=== PATIENT | female | born 1935 | race African-American/Black ===

== ENCOUNTER 2024-01-20 13:24 | Emergency (ER) | payer MEDICARE, SELFPAY ==
--- NOTE | ~2024-01-20 | XR_ITS ---
XR shoulder RT min 2V Ordering provider: Richmond Bob MD History: . Pain, chonic pain bilateral shoulder . Comparison: None. FINDINGS: BONES: No acute fracture or dislocation. Degenerative changes seen in the greater tuberosity with cys tic changes in the subchondral area of the head. JOINT SPACES: The acromioclavicular joint shows osteoarthritic changes. The glenohumeral joint is sev erely narrowed. SOFT TISSUES: Normal. IMPRESSION: No acute osseous abnormality right shoulder. Severe osteoarthritic changes of the glenohumeral joint and mild to moderate acromioclavicular joint osteoarthritic changes. Reviewed, dictated and finalized at location A. IMPRESSION: No acute osseous abnormality right shoulder. Severe osteoarthritic changes of the glenohumeral joint and mild to moderate ac romioclavicular joint osteoarthritic changes.
--- NOTE | ~2024-01-20 | XR_ITS ---
XR shoulder LT min 2V Ordering provider: Richmond Bob MD History: . Pain, chronic pain bilateral shoulder . Comparison: None. FINDINGS: BONES: No acute fracture or dislocation. Cystic changes seen in the humeral head. JOINT SPACES: The acromioclavicular joint shows osteoarthritic changes. The glenohumeral joint is se verely narrowed. SOFT TISSUES: Normal. IMPRESSION: No acute osseous abnormality left shoulder. Severe osteoarthritic changes of the glenohumeral joint. Mild osteoarthritic changes of the acromiocl avicular joint. Reviewed, dictated and finalized at location A. IMPRESSION: No acute osseous abnormality left shoulder. Severe osteoarthritic changes of the glenohumeral joint. Mild osteoarthritic ch anges of the acromioclavicular joint.
[2024-01-20 13:37] VITALS: BP 122/75; PULSE 60; RESP 16; TEMP 36.4; O2SAT 100
[2024-01-20] MEDS: HYDROcodone/acetaminophen (*CRX) 5-325 MG TABLET 1 TAB PO (14:12)
--- NOTE | 2024-01-20 15:23 | ED.EXTPRO ---
HPI - Extremity Problem General Chief complaint: Extremity Problem,Nontraumatic Stated complaint: BONE ON BONE JOINT PAIN Time Seen by Provider: 01/20/24 13:44 History of Present Illness HPI Narrative: Patient is an 88-year-old female who presents ER with bilateral shoulder pain. Chronic. Has been seen by an orthopedic surgeon Lizandro at [facility]. She has had steroid injections. She is due for another 1 next month. No trauma. Has occasional clicking when she moves her arm. Pain is not controlled with tramadol at home. Has not seen pain management. Related Data Allergies Allergy/AdvReac Type Severity Reaction Status Date / Time No Known Allergies Allergy Unverified 12/01/13 11:21 Review of Systems Constitutional: Constitutional: Reports no additional constitutional complaints Musculoskeletal: Musculoskeletal: Reports back pain, Reports arthralgias, Denies joint swelling and Denies muscle cramps Neurologic: Reports system reviewed and no additional complaints, except as documented PMFSH Past Medical History Medical History (Updated 01/20/24 @ 15:31 by Richmond Bob MD) Hypercholesterolemia Hypertension Surgical History Surgical History (Updated 01/20/24 @ 15:25 by Richmond Bob MD) History of colon resection History of hysterectomy History of right knee joint replacement Exam Narrative: GENERAL: Well-appearing, well-nourished, and in no acute distress. HEAD: Normocephalic, atraumatic. ENT: Mucous membranes moist. EXTREMITIES: limited range of motion of the shoulders bilaterally due to pain in arthritis. No point tenderness to the shoulders or clavicles. SKIN: Warm, dry, no rash. NEURO: Alert and oriented x3. PSYCH: Normal mood and affect. Course Course Emergency Course: [place] improves patient's discomfort. There having trouble obtaining this from PCP as they were concerned about the patient potentially having side effects that affect her adversely though her pain is preventing her ability to move and function. Recommend that she go to pain management. Will supply some [place] for as needed pain at home. Vital Signs Vital signs: Vital Signs Temperature 97.6 F 01/20/24 13:37 Pulse Rate 60 01/20/24 13:37 Respiratory Rate 16 01/20/24 13:37 Blood Pressure 122/75 01/20/24 13:37 Pulse Oximetry 100 01/20/24 13:37 Oxygen Delivery Room Air 01/20/24 13:37 Temperature 97.6 F 01/20/24 13:37 Pulse Rate 60 01/20/24 13:37 Respiratory Rate 16 01/20/24 13:37 Blood Pressure 122/75 01/20/24 13:37 Pulse Oximetry 100 01/20/24 13:37 Oxygen Delivery Room Air 01/20/24 13:37 MDM - Extremity (Nontraumatic) Imaging Data Radiologist's impression: ITS Impressions Shoulder X-Ray 01/20/24 14:54 IMPRESSION: No acute osseous abnormality right shoulder. Severe osteoarthritic changes of the glenohumeral joint and mild to moderate acromioclavicular joint osteoarthritic changes. Shoulder X-Ray 01/20/24 14:56 IMPRESSION: No acute osseous abnormality left shoulder. Severe osteoarthritic changes of the glenohumeral joint. Mild osteoarthritic changes of the acromioclavicular joint. Discharge Plan Discharge Clinical Impression: Chronic pain in shoulder Patient Disposition: Home, Self-Care Condition: Stable Instructions: Shoulder Pain (ED), Arthritis (ED) Additional Instructions: Look into finding a chronic pain physician to help manage your discomfort. Prescriptions: New hydrocodone-acetaminophen 5-325 mg tablet 1 tablet PO Q6H PRN (Reason: pain) Qty: 20 0RF Follow-up/Referrals: Kerry Irby MD [Physician] - Rio Bee MD [Physician] - Flynn,Ash Aguero MD [Primary Care Provider] - Bhavin Nick MD [Physician] -
[2024-01-20 15:50] VITALS: BP 134/85; PULSE 75; RESP 20; TEMP 36.5; O2SAT 98
== END 2024-01-20 15:51 | disposition home or self-care (01) ==
PROVIDERS: Emergency Provider Emergency Medicine; PCP Internal Medicine
DX: M25.512 Pain in left shoulder (principal); M25.511 Pain in right shoulder; G89.29 Other chronic pain; M19.012 Primary osteoarthritis, left shoulder; M19.011 Primary osteoarthritis, right shoulder; E78.00 Pure hypercholesterolemia, unspecified; I10 Essential (primary) hypertension; Z90.49 Acquired absence of other specified parts of digestive tract; Z90.710 Acquired absence of both cervix and uterus; Z96.651 Presence of right artificial knee joint
CPT/HCPCS: 73030; 99284; A9270

== ENCOUNTER 2024-10-14 10:35 | Outpatient (CLI) | payer MEDICARE, MEDICAID, SELFPAY ==
--- OUTSIDE RECORDS SUMMARY | 2024-10-14 10:42 | XMS_ITS | Encounter Summary ---
Author Organization [facility] [employer] [facility] [employer] [facility] Address [address] [place], [place] [address] [place] [address] Phone Care Team Providers Care Historic Preservationist Name Role Phone Katharine Schulte Primary Care Provider Encounter Details Date Type Department Care Team (Late st Contact Info) Description 10/13/2024 Documentation Only [place] [facility] [address] [place] [address] 1 [place] [address] Saurabh Bernal MD [address] [facility] 1 [place] [address] Social History Tobacco Use Types Packs/Day Years Used Date Smoking Tobacco: Never Assessed Comments Unknown Sex and Gender Information Value Date Recorded Sex Assigned at Not on file Legal Sex Female 4:50 PM EDT Gender Identity Not on file Sexual Orientation Not on file documented as of this encounter Plan of Treatment Upcoming Encounters Date Type Department Care Team (Late st Contact Info) Description 12/01/2024 10:30 AM CDT Office Visit [place] [facility] [address] [facility] [address] [place] [address] Saurabh Bernal MD [address] [facility] 1 [place] [address] documented as of this encounter Visit Diagnoses Not on filedocumented in this encounter Care Teams Historic Preservationist Relationship Specialty Start Date End Date Katharine Schulte FNP-C [address] [place] [address] PCP - General Internal Medicine 08/12/24 documented as of this encounter
--- OUTSIDE RECORDS SUMMARY | 2024-10-14 10:42 | XMS_ITS | Encounter Summary ---
Author Organization [facility] [employer] [facility] [employer] [facility] Address [address] [place], [place] [address] [place] [address] Phone Care Team Providers Care Metal Punch Press Operator Name Role Phone Katharine Schulte Primary Care Provider [phone] Encounter Details Date Type Department Care Team (Late st Contact Info) Description 10/12/[address] [employer] [facility] [address] [place] [address] 1 [place] [address] Saurabh Bernal MD [address] [facility] 1 [place] [address] Social History Tobacco Use Types [...] Description 12/01/2024 10:30 AM CDT Office Visit [address] [employer] [facility] [address] [facility] 15 [place] [address] Saurabh Bernal MD [address] [facility] 1 [place] [address] documented as of this encounter Visit Diagnoses Not on filedocumented in this encounter Care Teams Metal Punch Press Operator Relationship Specialty Start Date End Date Katharine Schulte FNP-C [address] [place] [address] PCP - General Internal Medicine 08/12/24 documented as of this encounter
--- OUTSIDE RECORDS SUMMARY | 2024-10-14 10:42 | XMS_ITS | Encounter Summary ---
Author Organization [facility] [employer] [facility] Address [address] [facility] [place] [address] Phone Care Team Providers Care Geophysical Computer Name Role Phone Katharine Schulte PHARMACY INFORMATICS MANAGER-C Primary Care Provider Reason for Referral * Imaging (Routine) - Pending Review Specialty Diagnoses / Procedures Referred By Bakari t Referred To Contact Diagnoses Chronic kidney disease stage 3B (HCC) Hypertension Mixed hyperlipidemia Primary generalized osteoarthritis Simple chronic bronchitis (HCC) 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 Vitamin D deficiency, not otherwise specified Procedures Ultrasound renal complete Saurabh Bernal MD [address] [facility] 1 [place] [address] Phone: tel: fax: Referral ID Status Reason Start Date Expiration Date V isits Requested Visits Authorized [id number] Pending Review 10/13/2024 10/13/2025 1 1 Encounter Details Date Type Department Care Team (Late st Contact Info) Description 10/13/2024 10:30 AM CDT Office Visit [facility] [address] [facility] [address] [place] [phone] Saurabh Bernal MD [address] [facility] 1 [place] [address] Chronic kidney disease stage 3B (HCC) (Primary Dx); Hypertension; Mixed hyperlipidemia; Primary generalized osteoarthritis; Simple chronic bronchitis (HCC); 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); Anemia in chronic kidney disease; Vitamin D deficiency, not otherwise specified Social History Tobacco Use Types Packs/Day Years Used Date Smoking Tobacco: Never Assessed Comments Unknown Sex and Gender Information Value Date Recorded Sex Assigned at Not on file Legal Sex Female 4:50 PM EDT Gender Identity Not on file Sexual Orientation Not on file documented as of this encounter Last Filed Vital Signs Vital Sign Reading Time Taken Comments Blood Pressure 108/60 10/13/2024 11:07 AM CDT Pulse 66 10/13/2024 11:07 AM CDT Temperature 36.1 C (97 F) 10/13/2024 11:07 AM CDT Respiratory Rate 18 10/13/2024 11:07 AM CDT Oxygen Saturation 96% 10/13/2024 11:07 AM CDT Inhaled Oxygen Concentration - - Weight 73.3 kg (161 lb 9.6 oz) 10/13/2024 11:07 AM CDT Height - - Body Mass Index - - documented in this encounter Patient Instructions * Patient Instructions* Saurabh Bernal MD - 10/13/2024 10:30 AM CDT General chronic kidney disease education: You have chronic kidney disease, for additional information, look at the the National Kidney Foundation Internet site at www.kidney.org. Avoid pain medications called nonsteroidal anti-inflammatory drugs, which can raise blood pressure and harm your kidneys. These include ibuprofen and naproxen. Glucosamine and acetaminophen, also called Tylenol, are safe for you. Make sure to update your immunizations for influenza and 13 as well as 23 Valent pneumococcus with your primary care physician. documented in this encounter Progress Notes * Saurabh Bernal MD - 10/13/2024 10:30 AM CDT Images from the original note were not included. [facility] Office Visit Patient Name: Tosin Lundy, Female Date of : 1935, 89 y.o. Date: 10/13/2024 Assessment & Plan 1. Chronic kidney disease stage 3B (HCC) 2. Hypertension 3. Mixed hyperlipidemia 4. Primary generalized osteoarthritis 5. Simple chronic bronchitis (HCC) 6. 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 Anemia in chronic kidney disease 8. Vitamin D deficiency, not otherwise specified CK3 b likely due to HTN and perhaps ASVD. Likely has some CAD/mild CHF. Denies DM2 but might have some elevated A1c? Need to r/o kidney stones/Obs. With h/o bladder dysfunction so possible recurrent UTI in the past PLAN: Avoid NSAIDs. No med change at this time. Continue all the current meds. Labs today. See orders. Labs in 4 wks. US Kid. Return in about 4 weeks (around 11/10/2024). History of Present Illness Tosin Lundy is a 89 y.o. female who was referred by No primary care provider on file. She is here with her grand-daughter. Longer h/o HTN, CAD, DJD, s/p R-Knee prosthesis, s/p L-hip prosthesis, CKD, HLD, Obese, Mother of two. Did have a bladder lift some yrs a go. Over active Bladder but she no longer takes those meds. Did have a cysto yrs ago also. She denies COPD but has Albuterol inhailer prn and was on a steroid pack this past June. The following portions of the patient's chart were reviewed in this encounter and updated as appropriate: Meds No past medical history on file. No past surgical history on file. No family history on file. Social History Tobacco Use Smoking status: Not on file Smokeless tobacco: Not on file Substance Use Topics Alcohol use: Not on file Review of Systems Constitutional: Negative. She has a folding walker at home. She has a rolling walker here. HENT: Negative. Eyes: Negative. Respiratory: Negative. Cardiovascular: Negative. Gastrointestinal: Negative. Genitourinary: Negative. Musculoskeletal: Negative. Skin: Negative. Neurological: Negative. Psychiatric/Behavioral: Negative. All other systems reviewed and are negative. Current Outpatient Medications Medication Sig Dispense Refill acetaminophen (TYLENOL) 650 MG suppository Insert 650 mg into the rectum every 8 (eight) hours if needed for mild pain albuterol HFA (PROVENTIL HFA;VENTOLIN HFA) 108 (90 Base) MCG/ACT inhaler Inhale 2 puffs if needed for shortness of breath atenolol (TENORMIN) 50 MG tablet Take 50 mg by mouth in the morning and 50 mg in the evening. cetirizine (ZyrTEC) 10 MG tablet Take 10 mg by mouth 1 (one) time each day cholecalciferol (VITAMIN D-3 SUPER STRENGTH) 50 MCG (2000 UT) tablet Take 2,000 Units by mouth 1 (one) time each day Farxiga 10 MG tablet Take 10 mg by mouth 1 (one) time each day ferrous sulfate 325 (65 Fe) MG tablet Take 325 mg by mouth 1 (one) time each day with breakfast traMADol (ULTRAM) 50 MG tablet Take 50 mg by mouth every 8 (eight) hours if needed No current facility-administered medications for this visit. Not on File Physical Exam Vitals: 10/13/24 1107 BP: 108/60 Pulse: 66 Resp: 18 Temp: 97 ??F SpO2: 96% Weight: 161 lb 9.6 oz (73.3 kg) Vitals reviewed. Constitutional: She is oriented to person, place, and time. She feels OK. Bothered by joint pains in the knees and shoulders. HEENT: Right Ear: Hearing normal. Left Ear: Hearing normal. Nose: Nose normal. Mouth/Throat: Oropharynx is clear and moist. Eyes: Conjunctivae and EOM are normal. Pupils are equal, round, and reactive to light. Cardiovascular: Normal rate, regular rhythm and intact distal pulses. Pulmonary/Chest: Effort normal and breath sounds normal. Abdominal: Soft. Bowel sounds are normal. 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 She has normal reflexes. Skin: Skin is warm and dry. Psychiatric: She has a normal mood and affect. Her behavior is normal. Judgment normal. Labs Chemistry Lab Units 08/06/24 0000 CREATININE mg/dL 1.24* BUN mg/dL 19 POTASSIUM 5.0 SODIUM 138 CO2 mmol/L 24 CHLORIDE 97.0* ALBUMIN g/dL 4.2 EGFRAFR 42* WBC AUTO 10*3/ML 10.0 HEMATOCRIT 40.3 HEMOGLOBIN 12.4 PLATELETS AUTO 10*3/UL 345 Bone Mineral Lab Units 08/06/24 0000 CALCIUM mg/dL 10.9* No lab exists for component: IRON SATURATION No LOS data to display Saurabh Bernal MD documented in this encounter Plan of Treatment Upcoming Encounters Date Type Department Care Team (Late st Contact Info) Description 12/01/2024 10:30 AM CDT Office Visit [facility] [address] [facility] [address] [place] [address] Saurabh Bernal MD [address] [facility] [address] [place] [address] Scheduled Orders Name Type Priority Associated Diagnoses Orde r Schedule Comprehensive Metabolic Panel Lab Today Chronic kidney disease stage 3B (HCC) Hypertension Mixed hyperlipidemia Primary generalized osteoarthritis Simple chronic bronchitis (HCC) 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 Vitamin D deficiency, not otherwise specified Ordered: 10/13/2024 CBC and Differential Lab Today Chronic kidney disease stage 3B (HCC) Hypertension Mixed hyperlipidemia Primary generalized osteoarthritis Simple chronic bronchitis (HCC) 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 Vitamin D deficiency, not otherwise specified Ordered: 10/13/2024 Hemoglobin A1c Lab Today Chronic kidney disease stage 3B (HCC) Hypertension Mixed hyperlipidemia Primary generalized osteoarthritis Simple chronic bronchitis (HCC) 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 Vitamin D deficiency, not otherwise specified Ordered: 10/13/2024 Phosphorus Lab Today Chronic kidney disease stage 3B (HCC) Hypertension Mixed hyperlipidemia Primary generalized osteoarthritis Simple chronic bronchitis (HCC) 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 Vitamin D deficiency, not otherwise specified Ordered: 10/13/2024 PTH, Intact Lab Today Chronic kidney disease stage 3B (HCC) Hypertension Mixed hyperlipidemia Primary generalized osteoarthritis Simple chronic bronchitis (HCC) 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 Vitamin D deficiency, not otherwise specified Ordered: 10/13/2024 Urinalysis with microscopic Lab Today Chronic kidney disease stage 3B (HCC) Hypertension Mixed hyperlipidemia Primary generalized osteoarthritis Simple chronic bronchitis (HCC) 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 Vitamin D deficiency, not otherwise specified Ordered: 10/13/2024 Protein, Total, Random Urine w/Creatinine (Protein/Creat Ratio) Lab Today Chronic kidney disease stage 3B (HCC) Hypertension Mixed hyperlipidemia Primary generalized osteoarthritis Simple chronic bronchitis (HCC) 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 Vitamin D deficiency, not otherwise specified Ordered: 10/13/2024 Vitamin D 25 Hydroxy Lab Today Chronic kidney disease stage 3B (HCC) Hypertension Mixed hyperlipidemia Primary generalized osteoarthritis Simple chronic bronchitis (HCC) 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 Vitamin D deficiency, not otherwise specified Ordered: 10/13/2024 Lipid panel Lab Today Chronic kidney disease stage 3B (HCC) Hypertension Mixed hyperlipidemia Primary generalized osteoarthritis Simple chronic bronchitis (HCC) 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 Vitamin D deficiency, not otherwise specified Ordered: 10/13/2024 Ultrasound renal complete Imaging Routine Chronic kidney disease stage 3B (HCC) Hypertension Mixed hyperlipidemia Primary generalized osteoarthritis Simple chronic bronchitis (HCC) 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 Vitamin D deficiency, not otherwise specified Expected: 10/13/2024, Expires: 10/13/2025 Renal function panel Lab Routine Chronic kidney disease stage 3B (HCC) Hypertension Mixed hyperlipidemia Primary generalized osteoarthritis Simple chronic bronchitis (HCC) 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 Vitamin D deficiency, not otherwise specified Expected: 11/13/2024, Expires: 11/13/2025 Urine Protein / creatinine ratio Lab Routine Chronic kidney disease stage 3B (HCC) Hypertension Mixed hyperlipidemia Primary generalized osteoarthritis Simple chronic bronchitis (HCC) 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 Vitamin D deficiency, not otherwise specified Expected: 11/13/2024, Expires: 11/13/2025 Urinalysis, Complete w/reflex to Culture Lab Routine Chronic kidney disease stage 3B (HCC) Hypertension Mixed hyperlipidemia Primary generalized osteoarthritis Simple chronic bronchitis (HCC) 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 Vitamin D deficiency, not otherwise specified Expected: 11/13/2024, Expires: 11/13/2025 documented as of this encounter Procedures Procedure Name Priority Date/Time Associated Diagnosis Comments EXT RESULT ENTRY Routine 08/06/2024 Chronic kidney disease stage 3B (HCC) Hypertension Mixed hyperlipidemia Primary generalized osteoarthritis Simple chronic bronchitis (HCC) 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 Vitamin D deficiency, not otherwise specified documented in this encounter Results * (ABNORMAL) EXT RESULT ENTRY (08/06/2024) WBC 10.0 3.3 - 10.0 10*3/ML Red Blood Cell Count 4.30 Hemoglobin 12.4 12.0 - 16.0 Hematocrit 40.3 36.0 - 46.0 Platelets 345 150 - 399 10*3/UL MCV 93.7 82.0 - 108.0 Sodium 138 137 - 147 Potassium 5.0 3.4 - 5.5 Chloride 97.0(A) 99.0 - 108.0 Carbon Dioxide 24 mmol/L Glucose 77 60 - 200 BUN 19 4 - 21 mg/dL Creatinine 1.24(A) 0.50 - 1.10 mg/dL Total Protein 6.8 6.4 - 8.2 G/DL BUN/Creatinine Ratio 15 Albumin 4.2 3.5 - 5.0 g/dL Calcium 10.9(A) 8.7 - 10.7 mg/dL eGFR 42(L) Glucose, UA 2+ mg/dL Bilirubin, UA Negative Ketones, UA Negative Urine Specific [place] 1.04 Blood, UA Trace Tim/ul pH, UA 7.0 Protein, UA Negative mg/dL Urobilinogen, UA Normal Nitrite, UA Negative Leukocytes, UA Trace WBC, Urine None Seen None Seen, Occasional, 0-2 /HPF RBC, Urine None Seen None Seen, Occasional, 1-5 /HPF Epithelial Cells in Urine 6-10 /HPF Bacteria, Urine None Seen None Seen, Occasional /HPF 08/06/2024 us Historical Provider LAB BLOOD ORDERABLES Josy l Result documented in this encounter Visit Diagnoses Diagnosis Chronic kidney disease stage 3B (HCC)- Primary Hypertension Mixed hyperlipidemia Primary generalized osteoarthritis Simple chronic bronchitis (HCC) Simple chronic bronchitis 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
--- OUTSIDE RECORDS SUMMARY | 2024-10-14 10:42 | XMS_ITS | Clinical Summary ---
Author Organization [facility] [email or web address] Address [address] [place] [address] Care Team Providers Care Application Assistant Name Role Phone Ash Pruett MD Primary Care Provider [phone] Source Comments [facility] [email or web address]non-owned Affiliates and Associated Physician Practices is amultiple site organization consisting of ambulatory clinics and hospital sitesin [place], [place], [place] and [place]. This disclosure is being madepursuant to the Care Everywhere program and may not contain all information available regarding this patient. Last updated 17.[facility] [email or web address] Medications * Be aware that medications may not be up to date on this document. Alwaysverify current medications with the patient. clindamycin (Cleocin) 300 MG capsule Take 1 (one) capsule by mouth 3 times daily 15 capsule 08/11/2024 Active Encounters Date Type Department Care Team Description 08/11/2024 11:30 AM CDT - 08/11/2024 1:00 PM CDT Emergency [facility] [address] [place] [address] Cristofer Lazar MD Pain of finger of right hand; Onychia and paronychia of finger Discharge Disposition: Home or Self Care 08/11/2024 Travel from Last 3 Months Social History Tobacco Use Types Packs/Day Years Used Date Smoking Tobacco: Never Assessed Comments Unknown Sex and Gender Information Value Date Recorded Sex Assigned at Not on file Legal Sex Female 10:52 AM CDT Gender Identity Not on file Sexual Orientation Not on file Last Filed Vital Signs Vital Sign Reading Time Taken Comments Blood Pressure 110/65 08/11/2024 10:58 AM CDT Pulse 65 08/11/2024 10:58 AM CDT Temperature 36.8 C (98.3 F) 08/11/2024 10:58 AM CDT Respiratory Rate 18 08/11/2024 10:58 AM CDT Oxygen Saturation 98% 08/11/2024 10:58 AM CDT Inhaled Oxygen Concentration - - Weight 74.8 kg (165 lb) 08/11/2024 10:58 AM CDT Height 162.6 cm (5' 4) 08/11/2024 10:58 AM CDT Body Mass Index 28.32 08/11/2024 10:58 AM CDT Plan of Treatment Health Maintenance Due Date Last Done Comments BONE DENSITY TESTING 1936 DTAP/TDAP/TD VACCINES (1 - Tdap) 1955 PNEUMOCOCCAL VACCINE 50+ (1 of 1 - PCV) 1986 ZOSTER VACCINE (1 of 2) 1986 Respiratory Syncytial Virus (RSV) Vaccine Pt: or over 60 yrs (1 - 1-dose 75+ series) 2011 COVID-19 VACCINE ( - season) 2023 DEPRESSION SCREENING 04/08/2024 MEDICARE AWV CALENDAR YEAR 2024 INFLUENZA VACCINE (#1) 2024 , 01/19/2020, 02/20/2019, Additional history exists HEPATITIS B VACCINE Aged Out No longe r eligible based on patient's age to complete this topic HIB VACCINE Aged Out No longer eligi ble based on patient's age to complete this topic HPV VACCINE Aged Out No longer eligi ble based on patient's age to complete this topic MENINGOCOCCAL (Group B) VACCINE SHARED DECISION-MAKING Aged Out No longer eligible based on patient's age to complete this topic MENINGOCOCCAL GROUPS A/C/Y/W VACCINE Aged Out No longer eligible based on patient's age to complete this topic Procedures Procedure Name Priority Date/Time Associated Diagnosis Comments XR HAND RIGHT 3VW OR MORE STAT 08/11/2024 12:15 PM CDT Pain of finger of right hand from Last 3 Months Results * XR HAND RIGHT 3VW OR MORE (08/11/2024 12:15 PM CDT) Anatomical Region Laterality Modality Wrist / Hand Digital Radiogra phy 08/11/2024 12:4 4 PM CDT Impressions 08/11/2024 12:47 PM CDT IMPRESSION: No acute osseous abnormality. Soft tissue swelling of the third digit. > Interpreting Provider: Yina Michel MD on 08/11/2024 12:47 PM Narrative 08/11/2024 12:47 PM CDT PROCEDURE: XR HAND RIGHT 3VW OR MORE DATE/TIME OF EXAM: 08/11/2024 12:17 PM CLINICAL INFORMATION: None relevant/not provided if blank. Indication: M79.644: Pain of finger of right hand Additional History: Attention third digit COMPARISON: None. FINDINGS: There is no fracture or dislocation. There is mild subluxation at the first carpometacarpal joint. Otherwise joint spaces are preserved. Bone density is mildly decreased. There is soft tissue swelling of the third digit. No soft tissue gas or foreign body is evident. Procedure Note Yina Michel MD - 08/11/2024 PROCEDURE: XR HAND RIGHT 3VW OR MORE DATE/TIME OF EXAM: 08/11/2024 12:17 PM CLINICAL INFORMATION: None relevant/not provided if blank. Indication: M79.644: Pain of finger of right hand Additional History: Attention third digit COMPARISON: None. FINDINGS: There is no fracture or dislocation. There is mild subluxation at thefirst carpometacarpal joint. Otherwise joint spaces are preserved. Bonedensity is mildly decreased. There is soft tissue swelling of the third digit.No soft tissue gas or foreign body is evident. IMPRESSION: No acute osseous abnormality. Soft tissue swelling of the third digit. > Interpreting Provider: Yina Michel MD on 08/11/2024 12:47 PM Venus Rain PA-C DIAGNOSTIC IMAGING ORDERABLES Final Result from Last 3 Months Insurance [facility] [place] [address] Care Teams Application Assistant Relationship Specialty [place] [address] [place] [address] [address] [place] [address] PCP - General Internal Medicine 08/11/24
--- OUTSIDE RECORDS SUMMARY | 2024-10-14 10:42 | XMS_ITS | Clinical Summary ---
Author Organization [facility] Address [address] [place] [address] Care Team Providers Care Farmworker Dairy Name Role Phone Unavailable Primary Care Provider Unavailabl e Social History Tobacco Use Types Packs/Day Years Used Date Smoking Tobacco: Never Assessed Comments Unknown Sex and Gender Information Value Date Recorded Sex Assigned at Not on file Legal Sex Female 8:33 PM CDT Gender Identity Not on file Sexual Orientation Not on file Plan of Treatment Health Maintenance Due Date Last Done Comments DTaP, Tdap and Td Vaccines ( 1 - Tdap) 1955 Pneumococcal Vaccine: 50+ Ye ars (1 of 1 - PCV) 1986 Zoster Vaccines (1 of 2) 1986 RSV Immunization or 60+ Years (1 - 1-dose 75+ series) 2011 COVID-19 Vaccine (2023-2 5 season) 2023 Meningococcal B Vaccine Aged Out No l onger eligible based on patient's age to complete this topic Meningococcal Vaccine Aged Out No rodriguez mena eligible based on patient's age to complete this topic RSV Immunizations Under 20 Months Aged Out No longer eligible based on patient's age to complete this topic
--- OUTSIDE RECORDS SUMMARY | 2024-10-14 10:42 | XMS_ITS | Encounter Summary ---
Author Organization [facility] [employer] [facility] [employer] [facility] Address [address] [place], [place] [address] [place] [address] Phone Care Team Providers Care Power Generation Equipment Repairer Name Role Phone Katharine Schulte Primary Care Provider Encounter Details Date Type Department Care Team (Late st Contact Info) Description 10/14/2024 Documentation Only [facility] [address] [place] [address] 1 [place] [address] Saurabh Bernal MD [address] [facility] [address] [place] [address] Social History Tobacco Use Types [...] Description 12/01/2024 10:30 AM CDT [facility] [address] [facility] [address] [place] [phone] Saurabh Bernal MD [address] [facility] [address] [place] [address] documented as of this encounter Visit Diagnoses Not on filedocumented in this encounter Care Teams Power Generation Equipment Repairer Relationship Specialty Start Date End Date Katharine Schulte FNP-C [address] [place] [address] PCP - General Internal Medicine 08/12/24 documented as of this encounter
--- OUTSIDE RECORDS SUMMARY | 2024-10-14 10:42 | XMS_ITS | Clinical Summary ---
Author Organization [facility] Address [address] 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),Anemia in chronic kidney disease,Vitamin D deficiency, not otherwise specified Inhale 2 puffs if needed for shortness of breath Active traMADol (ULTRAM) 50 MG tabletIndications:C hronic kidney disease stage 3B (HCC),Hypertension, Mixed hyperlipidemia,Prim freddie generalized osteoarthritis,Simp le chronic bronchitis (HCC),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),Anemia in chronic kidney disease,Vitamin D deficiency, not otherwise specified Take 50 mg by mouth every 8 (eight) hours if needed Active Farxiga 10 MG tabletIndications:C hronic kidney disease stage 3B (HCC),Hypertension, Mixed hyperlipidemia,Prim freddie generalized osteoarthritis,Simp le chronic bronchitis (HCC),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),Anemia in chronic kidney disease,Vitamin D deficiency, not otherwise specified Take 10 mg by mouth 1 (one) time each day 5 Active cholecalciferol (VITAMIN D-3 SUPER STRENGTH) 50 MCG (1999) tabletIndications:C hronic kidney disease stage 3B (HCC),Hypertension, Mixed hyperlipidemia,Prim freddie generalized osteoarthritis,Simp le chronic bronchitis (HCC),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),Anemia in chronic kidney disease,Vitamin D deficiency, not otherwise specified Take 2,000 Units by mouth 1 (one) time each day Active acetaminophen (TYLENOL) 650 MG suppositoryIndicati ons:Chronic kidney disease stage 3B (HCC),Hypertension, Mixed hyperlipidemia,Prim freddie generalized osteoarthritis,Simp le chronic bronchitis (HCC),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),Anemia in chronic kidney disease,Vitamin D deficiency, not otherwise specified Insert 650 mg into the rectum every 8 (eight) hours if needed for mild pain Active ferrous sulfate 325 (65 Fe) MG tabletIndications:C hronic kidney disease stage 3B (HCC),Hypertension, Mixed hyperlipidemia,Prim freddie generalized osteoarthritis,Simp le chronic bronchitis (HCC),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),Anemia in chronic kidney disease,Vitamin D deficiency, not otherwise specified Take 325 mg by mouth 1 (one) time each day with breakfast Active Active Problems Problem Noted Date Diagnosed Date Chronic kidney disease stage 3B 10/13/2024 Hyperlipidemia 10/13/2024 Generalized osteoarthritis 10/13/2024 Anemia in chronic kidney disease 10/13/2024 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 [address] 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); Anemia in chronic kidney disease; Vitamin D deficiency, not otherwise specified 10/13/2024 Documentation Only [address] [phone] Saurabh Bernal MD 10/12/2024 Documentation Only [address] [phone] Saurabh Bernal MD 08/12/2024 Documentation Only [address] [phone] ProviderManuel MD from Last 3 Months Social History Tobacco [...] - - Body Mass Index - - Plan of Treatment Upcoming Encounters Date Type Department Care Team (Late st Contact Info) Description 12/01/2024 10:30 AM CDT Office Visit [facility] [address] [facility] [address] [place] [phone] Saurabh Bernal MD [address] [facility] [address] [place] [phone] Health Maintenance Due Date Last Done Comments Pneumococcal Vaccine: 50+ Years (2 of 2 - PPSV23, PCV20, or PCV21) 12/21/2016 10/26/2016 Influenza Vaccine (#1) 2024 4, 01/19/2020, 02/20/2019, Additional history exists Hepatitis B Vaccine Aged Out No longe r eligible based on patient's age to complete this topic Procedures Procedure Name Priority Date/Time Associated Diagnosis Comments EXT RESULT ENTRY Routine 08/06/2024 Chronic kidney disease stage 3B (HCC) Hypertension Mixed hyperlipidemia Primary generalized osteoarthritis Simple chronic bronchitis (HCC) 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 in chronic kidney disease Vitamin D deficiency, not otherwise specified from Last 3 Months Results * (ABNORMAL) EXT RESULT ENTRY (08/06/2024) [...] UA Negative Ketones, UA Negative Urine Specific [place] 1.04 Blood, UA Trace Tim/ul pH, UA 7.0 Protein, UA Negative mg/dL Urobilinogen, UA Normal Nitrite, UA Negative Leukocytes, UA Trace WBC, Urine None Seen None Seen, Occasional, 0-2 /HPF RBC, Urine None Seen None Seen, Occasional, 1-5 /HPF Epithelial Cells in Urine 6-10 /HPF Bacteria, Urine None Seen None Seen, Occasional /HPF 08/06/2024 us Historical Provider LAB BLOOD ORDERABLES Josy rushing Result from Last 3 Months Insurance [facility] Medicare Care Teams Bench Assembler Battery Relationship Specialty Start Date End Date Katharine Schulte FNP-C [address] [place] [address] PCP - General Internal Medicine 08/12/24
--- OUTSIDE RECORDS SUMMARY | 2024-10-14 10:42 | XMS_ITS | Clinical Summary ---
Author Organization [facility] Address [address] [place] [phone] Care Team Providers Care Foundation Assistant Name Role Phone Unavailable Primary Care Provider Unavailabl e Encounters Date Type Department Care Team Description 09/23/2024 External Device Data [facility] ABSTRACTION Provider, Abstract 09/22/2024 External Device Data [place] ABSTRACTION Provider, Abstract 09/01/2024 External Device Data [place] ABSTRACTION Provider, Abstract 08/26/2024 External Device Data [place] ABSTRACTION Provider, Abstract 08/25/2024 External Device Data [place] ABSTRACTION Provider, Abstract from Last 3 Months Social History Tobacco Use Types Packs/Day Years Used Date Smoking Tobacco: Never Assessed Comments Unknown Sex and Gender Information Value Date Recorded Sex Assigned at Not on file Legal Sex Female 3:04 PM ADMINISTRATIVE [employer] Gender Identity Not on file Sexual Orientation Not on file Plan of Treatment Health Maintenance Due Date Last Done Comments DTAP/TDAP/TD VACCINES (1 - Tdap) 1955 ZOSTER VACCINE (1 of 2) 1986 OSTEOPOROSIS SCREENING 2001 RSV VACCINE (60+ or ) (1 - 1-dose 75+ series) 2011 PNEUMOCOCCAL VACCINE 50+ YEA RS (2 of 2 - PPSV23) 10/26/2017 10/26/2016 INFLUENZA VACCINE (#1) 2024 4, 02/20/2022, 01/24/2021, Additional history exists Insurance [facility] [id number]
--- OUTSIDE RECORDS SUMMARY | 2024-10-14 10:42 | XMS_ITS | Data Portability ---
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 The patient tolerated procedures well. She also has severe primary osteoarthritis left knee joint x-rays today show fvvk-mo-dvci changes in the medial compartment with varus deformity. Under sterile conditions I injected the patient's left knee joint in the office with 4 cc of 0.5% bupivacaine and 20 mg of Kenalog. Patient tolerated procedure well. I will see her back as needed she is going to see a pain management doctor soon to help control her pain she takes tramadol but can not take oral anti-inflammatory medications due to chronic kidney disease. I will see her back in 3 months if necessary for cortisone injections again she voiced understanding and agreed with the above plan she will call for any further problems difficulties or questions. Not available 04/14/2024 10:38:41 06/18/2024 06/18/2024 The patient has severe glenohumeral osteoarthritis of both shoulders right slightly worse than left and also severe primary osteoarthritis of the left knee joint. We talked about treatment options today in detail she does take tramadol through her pain management doctor but can not take oral anti-inflammatory medication due to the fact that she has significant chronic kidney disease. She wanted to take a course of oral prednisone we will get her set up for this she also wanted shots of cortisone therefore under sterile conditions I injected the patient's bilateral shoulder joints and the patient's left knee joint in the office today with 4 cc of 0.5% bupivacaine and 20 mg of Kenalog each for a total of 3 injections. The patient tolerated all 3 injections well. I will see her back as needed we can do this again in about 3 months if necessary she voiced understanding and agreed with the above plan she will call for any further problems difficulties or questions. Not available 06/18/2024 11:09:40 09/03/2024 09/03/2024 The patient has severe glenohumeral osteoarthritis of both shoulders which are fqgx-cx-mayb with subchondral cystic formation and marginal osteophytes. She also has severe primary osteoarthritis left knee joint. At her request under sterile conditions I injected the patient's bilateral shoulder joints and the left knee joint in the office today with 4 cc of 0.5% bupivacaine and 20 mg of Kenalog each. The patient tolerated both injections well. I will see her back as needed we can do this again in 3 months if necessary. The patient and her family voiced understanding and agreed with the above plan he will call for any further problems difficulties or questions. Not available 09/03/2024 11:49:00 Plan of Treatment Reminders Order Date Submit Date Provider Last Modified By Organization Details Last Modified Time Details Appointments Any 5 2024 09:45A WE[place]INGTON Delarosa Not available Not available Not available Any 15 2024 02:00P Jennifer Pruett MD Not available Not available Not available Lab CMP, serum or plasma 2024 025 [email or web address] [facility], [address] [place], [address], 08/12/2024 09:44:54 BMP, serum or plasma 2024 025 [email or web address] [facility], [address] [place], [address], 08/12/2024 09:44:54 urinaly sis, complet e 2024 025 [email or web address] [facility], [address] [facility], [place], [address], 08/12/2024 09:44:55 CBC w/ auto diff 2024 025 YOSEF [facility], [address] [facility], [place], [address], 08/07/2024 13:53:08 Referral wound care referra l - Was seen in urgent care and given antibio tics and ointmen t. Please call patient to avi garcia appoint ment. Thank you. 2024 025 [email or web address] [facility], [address] [facility] [address], [place], [address], 08/27/2024 12:12:31 Procedures injecti on/aspi ration joint/b ursa (PROC) 2024 025 [email or web address] In-Office Order, Internal Use Only DO Not Attach Compendium DO Not Attach Compendium, Do Not Delete/merge, 09/03/2024 11:20:16 injecti on/aspi ration joint/b ursa (PROC) 2024 025 [email or web address] In-Office Order, Internal Use Only DO Not Attach Compendium DO Not Attach Compendium, Do Not Delete/merge, 09/03/2024 11:20:16 injecti on/aspi ration joint/b ursa (PROC) 2024 025 [email or web address] In-Office Order, Internal Use Only DO Not Attach Compendium DO Not Attach Compendium, Do Not Delete/merge, 06/18/2024 10:43:31 injecti on/aspi ration joint/b ursa (PROC) 2024 025 [email or web address] In-Office Order, Internal Use Only DO Not Attach Compendium DO Not Attach Compendium, Do Not Delete/merge, 06/18/2024 10:43:31 injecti on/aspi ration joint/b ursa (PROC) 2024 025 [email or web address] In-Office Order, Internal Use Only DO Not Attach Compendium DO Not Attach Compendium, Do Not Delete/merge, [id number] 04/14/2024 10:01:42 injecti on/aspi ration joint/b ursa (PROC) 2024 025 [email or web address] In-Office Order, Internal Use Only DO Not Attach Compendium DO Not Attach Compendium, Do Not Delete/merge, [id number] 04/14/2024 10:01:42 Surgeries None recorde d. Imaging XR, knee 2024 025 [email or web address] [facility], [facility], [place], [address], 04/14/2024 11:04:07 Medication Orders Zithrom ax Z-Andrés 250 mg tablet 2024 025 YOSEF [id number], [address] [facility], [place], [address], 09/16/2024 15:26:40 bupivac ted HCl 0.5 % (5 mg/mL) injecti on solutio n [id number], [address] [facility], [place], [address], 09/03/2024 11:36:25 Kenalog 10 mg/mL suspens ion for injecti on [address]/[facility]acy #[id number], [address] [facility], [place], [address], 09/03/2024 11:36:25 bupivac ted HCl 0.5 % (5 mg/mL) injecti on solutio n [address]/Pharmacy #[id number], [address] [place], [address], 09/03/2024 11:36:25 Kenalog 10 mg/mL suspens ion for injecti on 2024 025 [email or web address] [id number], [address] [place], [address], 09/03/2024 11:36:25 bupivac ted HCl 0.5 % (5 mg/mL) injecti on solutio n 2024 025 [email or web address] [facility], [address] [place] [address], [address], 06/18/2024 11:11:38 Kenalog 10 mg/mL suspens ion for injecti on 2024 025 [email or web address] [facility], [address] [place] [address], [address], 08/05/2024 16:19:06 prednis one 10 mg tablets in a dose pack 2024 025 [email or web address] [facility], [address] [place] [address], [address], 06/18/2024 11:11:38 bupivac ted HCl 0.5 % (5 mg/mL) injecti on solutio n 2024 025 [email or web address] [facility], [address] [place] [address], [address], 06/18/2024 11:11:38 Kenalog 10 mg/mL suspens ion for injecti on 2024 025 [email or web address] [facility] [address], [address], 08/05/2024 16:19:06 bupivac ted HCl 0.5 % (5 mg/mL) injecti on solutio n 2024 025 [email or web address] 1 [facility], [address] [place] [address], [address], 05/27/2024 08:01:52 Kenalog 10 mg/mL suspens ion for injecti on 2024 025 [email or web address] [facility] [address], [address], 08/05/2024 16:19:06 bupivac ted HCl 0.5 % (5 mg/mL) injecti on solutio n 2024 025 [email or web address] 1 [facility] [address], [address], 05/27/2024 08:01:52 Kenalog 10 mg/mL suspens ion for injecti on 2024 025 [email or web address] [facility] [address], [address], 08/05/2024 16:19:06 Patient TargetsNo targets recorded. Patient Instructions Encounter Date Encounter Id Patient Instructions Last Modified By Organization Details Last Modified Time 08/05/2024 [id number] Continue to follow healthy diet. Use miralax for constipation as needed. Increase water intake. Avoid NSAID use Continue to see Pain managment. [email or web address] Not available 08/05/2024 21:33:15 09/16/2024 [id number] Discussed the importance of antibiotic therapy compliance. Patient needs to take medication as prescribed, including completing entire course even if symptoms improve/resolve. Discussed possible side effects of medication. Instructed patient to take medication with food to prevent stomach upset and increase daily water intake. Patient will follow up in 3-4 days if symptoms are not improving or worsen while taking antibiotics. [email or web address] Not available 09/16/2024 15:26:17 Reason for Referral Was seen in urgent care and given antibiotics and ointment. Please call patient to schedule an appointment. Thank you. Referring Physician: Katharine Schulte, Internal Medicine, Encounter Date: 08/05/2024 Results Created Date Observation Date Name Description Value Unit Range Abnormal Flag Note LastModifiedBy Organization Detail LastModifiedTime 04/14/19 25 XR, knee No observ ation record ed. [email or web address] [facility] [address] [facility], [place], [address], 04/14/2024 10:39:41 10/14/[address], abdom en + pelvi s, w/ contr ast No observ ation record ed. [email or web address] Not Available 10/14 08:53:47 Result Notes None recorded. Problems Name Problem SNOMED Code Status Onset Date Resolution Date Notes Provider Name and Address Organization Details Recorded Time Celluliti s 709705570 Completed Not Available [facility] 3 01:37:42 Constipat ion 56749838 Completed Maximo Pruett MD [address] [facility], [address], [place], [address] , [facility] 4 16:11:09 Acute sinusitis 85624293 Completed 202102/16/2022 Not Available [facility] 3 01:37:42 Blood glucose outside reference range 054600568 Active 2016 Not Available [facility] 3 15:38:03 Acute pancreati tis 876922151 Active Not Available [facility] 3 15:38:03 Localized , primary osteoarth ritis of the pelvic region and thigh 922108743 Completed Not Available [facility] 3 01:37:42 Abdominal pain 03137658 Completed Not Available [facility] 3 01:37:42 Thyroid nodule 657479617 Active 2021 Not Available [facility] 3 15:38:03 Morbid obesity 933818826 Completed 06/20/2022 JOSEPH Arroyo, [facility] 3 10:15:03 Edema 289826449 Active 2020 Not Available [facility] 3 15:38:03 Edema 239248304 Completed 201606/28/2017 Not Available [facility] 3 01:37:43 Anemia 081173149 Active Not Available [facility] 3 15:38:03 Knee pain Completed Not Available [facility] 3 01:37:43 Vitamin D deficienc y 98453177 Active Not Available [facility] 3 15:38:03 Sinusitis 75790743 Completed Not Available [facility] 3 01:37:43 Arthritis 7913719 Active Not Available [facility] 3 15:38:03 Osteoarth ritis 380399915 Active Not Available [facility] 3 15:38:03 Obesity 814007461 Active Not Available [facility] 3 15:38:03 Pain of hip region 76713019 Completed Not Available [facility] 3 01:37:44 Upper respirato ry infection 74198445 Completed 202102/16/2022 Not Available [facility] 3 01:37:44 Hyperlipi demia 18387376 Active Not Available [facility] 3 15:38:03 Essential hypertens ion 52424818 Active Not Available [facility] 3 15:38:03 Hypercalc emia 77029328 Active 2019 Not Available [facility] 3 15:38:03 Hyperpara thyroidis m 12494733 Active 2021 Not Available [facility] 3 15:38:03 Polyp of colon 99256860 Active Not Available [facility] 3 15:38:03 Rhinitis 23810088 Active 2017 Not Available [facility] 3 15:38:03 Gastroint estinal hemorrhag e 82661400 Active Not Available [facility] 3 15:38:03 Pain of left shoulder joint 49330727663 710111 Active 2022 Not Available [facility] 3 15:38:03 Kidney disease 90488734 Active 2022 Not Available [facility] 3 15:38:03 Osteoarth ritis of left knee joint 22466631726 9109 Active 2022 Iona Arroyo CNA null, [place] - [facility] 5 11:51:04 Pain of right shoulder joint 19564981543 578539 Active 2022 Not Available [facility] 3 15:38:03 Pain of left knee joint 97368142543 4107 Active 2022 Not Available [facility] 3 15:38:03 Overactiv e urinary bladder 957381878 Active 2022 Not Available [facility] 3 15:38:03 Prediabet es 048224964 Active 2022 Not Available [facility] 3 15:38:03 Osteoarth ritis of joint of left shoulder region 06875399169 9108 Active 2023 JOSEPH Mccloud null, [place] [facility] 4 11:17:49 Heart murmur 43504220 Active 2023 Maximo Pruett MD [address], [address], [place], [address] , [facility] 4 11:50:09 Echocardi ogram abnormal 386704592 Active 2023 Sabrina Silverio LPN null, [place] - [facility] 4 09:49:35 Inguinal pain 724042395 Active 2023 Maximo Pruett MD [address], [address], [place], [address] , [facility] 4 12:34:03 Aortic valve stenosis 49441926 Active 2023 Maximo Pruett MD [address], [address], [place], [address] , [facility] 4 11:45:17 Osteoarth ritis of joint of right shoulder region 37321267303 9100 Active 2023 WELLINGTON Gonzalez [address], [address], [place], [address] , [facility] 4 11:23:59 Numbness of finger 117771391 Active 2023 Maximo Pruett MD [address], [address], [place], [address] , [facility] 4 12:30:38 Bilateral shoulder joint pain 16788327202 352188 Active 2023 Iona Arroyo [employer] null, [facility] 4 16:16:00 Urinary incontine nce 268155789 Active 2023 Sabrina Silverio LPN null, [facility] 4 15:21:11 Urinary symptoms 748243580 Active 2023 Sabrina Silverio LPN null, [facility] 4 16:13:56 Constipat ion 37452093 Active 2023 Maximo Pruett MD [address], [address], [place], [address] , [facility] 4 16:11:09 Injury of finger of right hand 12224577186 721702 Active 2024 SHAWANDA Villalta [address], [address], [place], [address] , [facility] 5 17:12:33 Chronic kidney disease stage 3B 766921554 Active 2024 SHAWANDA iVllalta [address], [address], [place], [address] , [facility] 5 10:03:28 Bronchiti s 81346224 Active 2024 SHAWANDA Villalta [address], [address], [place], [address] , [facility] 5 15:21:16 Upper respirato ry tract finding 451254772 Active 2024 SHAWANDA Villalta [address], [address], [place], [address] , [place] [facility] 15:25:45 Notes:Some problems listed i n Documents: #[id number], #[id number], #[id number], #[id number], #[id number], #[id number] could not be added to this patient's chart. Please review these documents and add these problems to the patient's chart manually as needed. Problem Notes None recorded. Procedures Surgical History Date Name Laterality Status Provider Name and Address Organization Details Recorded Time 09/18/19 24 Medicare Wellness CPT Code, subsequent completed Anushka Worley RN [facility] 09/18/2023 12:01:25 06/21/19 23 Medicare Wellness CPT Code, subsequent completed Nanette Lee RN [facility] 06/20/2022 10:41:48 10/22/19 21 Most Recent Bone Density completed Not Available [facility] 06/06/2022 01:22:51 06/28/19 16 Total hip arthroplasty completed Not Available [facility] 06/06/2022 01:22:56 12/02/19 14 Date of Last Colonoscopy completed Nanette Lee RN [facility] 06/20/2022 10:46:16 Cataract Surgery completed Not Available [facility] 06/06/2022 01:22:56 Knee Replacement completed Not Available [facility] 06/06/2022 01:22:56 PLASTICS PROCESS HAND Surgery completed Not Available [facility] 06/06/2022 01:22:56 Cataract Surgery completed Not Available [facility] 06/06/2022 01:22:56 other completed Not Available [facility] 04/2022 01:22:56 Genitourinary Surgery completed Not Available [facility] 06/06/2022 01:22:56 Imaging Results None recorded. Procedure Notes None recorded. Medical Equipment None Reported. Allergies No known drug allergies Medications Name Sig Start Date Stop Date Status Note LastModified by Organization Details LastModified Time Singulair 10 mg tablet Take 1 tablet every day by oral route. 06/20 completed Not Available Not Available Not Available amoxicillin 500 mg capsule Take 1 capsule every 8 hours by oral route. active Not Available Not Available No t Available prednisone 10 mg tablet TAKE 1 TAB BY MOUTH 3 TIMES A DAY FOR 3 DAYS, THEN 1 TAB 2 TIMES A DAY FOR 2 DAYS, THEN 1 TAB ONCE 2024 active Not Available Not Available Not Avai lable clindamycin HCl 300 mg capsule TAKE 1 CAPSULE BY MOUTH 3 TIMES A DAY FOR 5 DAYS. active Not Available Not Available No t Available polyethylen e glycol 3350 17 gram oral powder packet active Not Available Not Available Not Available cetirizine 10 mg tablet TAKE 1 TABLET BY MOUTH EVERY DAY 2024 active Not Available Not Available Not Avai lable atorvastati n 10 mg tablet active Not Available Not Available Not Available azithromyci n 250 mg tablet TAKE 2 TABLETS BY MOUTH TODAY, THEN TAKE 1 TABLET DAILY FOR 4 DAYS DIRECTED active Not Available Not Available No t Available benzonatate 200 mg capsule Take 1 capsule 3 times a day by oral route.PRN active Not Available Not Available No t Available hydrocodone 5 mg-acetamin ophen 325 mg tablet TAKE 1 TABLET BY MOUTH EVERY 8 HOURS NEEDED active Not Available Not Available No t Available Medrol (Andrés) 4 mg tablets in a dose pack take the medrol dose pack tablets PO as directed 07/28 completed Not Available Not Available Not Available bupivacaine HCl 0.5 % (5 mg/mL) injection solution Take 40 mg by injection route. 2024 active Not Available Not Available Not Avai lable prednisone 20 mg tablet TAKE 3 TABLETS ORAL ROUTE ONCE DAILY FOR 5 DAYS 02/04 completed Not Available Not Available Not Available lovastatin 40 mg tablet TAKE 1 TABLET BY MOUTH EVERY DAY 2024 active ALY ok to rf Not Available Not Available Not Available meclizine 12.5 mg tablet Take 1 tablet 3 times a day by oral route for 5 days. active Not Available Not Available No t Available ciprofloxac in 250 mg tablet TAKE 1 TABLET BY MOUTH EVERY 12 HOURS FOR 5 days active Not Available Not Available No t Available sulfamethox azole 800 mg-trimetho prim 160 mg tablet Take 1 tablet every 12 hours by oral route. 08/24 completed Not Available Not Available Not Available peg-electro lyte solution 420 gram oral solution active Not Available Not Available Not Available tramadol 50 mg tablet TAKE 1 OR 2 TABLETS BY MOUTH ONCE OR TWICE DAILY NEEDED active Not Available Not Available No t Available triamcinolo ne acetonide 0.1 % topical cream APPLY A THIN LAYER TO THE AFFECTED AREA(S) BY TOPICAL ROUTE 2 TIMES PER DAY active Not Available Not Available No t Available prednisone 10 mg tablets in a dose pack Take 1 tab by mouth, 3 times a day for 3 daysTake 1 tab by mouth 2 times a day for 2 daysTake 1 tab by mouth once a day for 1 day 2024 active Not Available Not Available Not Avai lable oxycodone-a cetaminophe n 5 mg-325 mg tablet active Not Available Not Available No t Available famotidine 20 mg tablet 06/29 completed Not Available Not Available Not Available Kenalog 10 mg/mL suspension for injection Take 40 mg by injection route. 2024 active [facility]: 0003- [phone]- 20 Not Available Not Available Not Available hydrocodone 7.5 mg-acetamin ophen 325 mg tablet Take 1 tablet 3 times a day by oral route as needed. active Not Available Not Available No t Available cephalexin 500 mg capsule TAKE 1 CAPSULE BY MOUTH EVERY 6 HOURS FOR 10 DAYS active Not Available Not Available No t Available oseltamivir 75 mg capsule 05/31 completed Not Available Not Available Not Available lidocaine 5 % topical patch APPLY 2 PATCHES TO THE MOST PAINFUL AREA FOR UP TO 12 HOURS EVERY DAY 03/18 completed Not Available Not Available Not Available mupirocin 2 % topical ointment APPLY TO AFFECTED AREA 2-3 TIMES A DAY active Not Available Not Available No t Available diclofenac sodium 50 mg tablet,ashleigh yed release TAKE 1 TABLET BY MOUTH TWICE A DAY 06/20 completed Not Available Not Available Not Available furosemide 20 mg tablet Take 1 tablet every day by oral route for 30 days. active Not Available Not Available No t Available ibuprofen 600 mg tablet 10/28 completed Not Available Not Available Not Available levofloxaci n 500 mg tablet qd 03/14 completed Not Available Not Available Not Available albuterol sulfate HFA 90 mcg/actuati on aerosol inhaler INHALE 2 PUFFS EVERY 4 HOURS BY INHALATIO N ROUTE NEEDED active Not Available Not Available No t Available Vitamin D2 1,250 mcg (50,000 unit) capsule Take 1 capsule every week by oral route for 90 days. 09/20 completed Not Available Not Available Not Available clobetasol 0.05 % scalp solution 02/25 completed Not Available Not Available Not Available fluticasone propionate 50 mcg/actuati on nasal spray,suspe nsion [place] 2 sprays every day by intranasa l route. 02/05 completed Not Available Not Available Not Available atenolol 50 mg tablet TAKE 1 TABLET BY MOUTH TWICE A DAY 2024 active ALY ok to rf Not Available Not Available Not Available naproxen 500 mg tablet Take 1 tablet twice a day by oral route for 30 days. 10/26 completed Not Available Not Available Not Available amoxicillin 875 mg-potassiu m clavulanate 125 mg tablet TAKE 1 TABLET BY MOUTH TWICE A DAY FOR 7 DAYS active Not Available Not Available No t Available enoxaparin 40 mg/0.4 mL subcutaneou s syringe active Not Available Not Available No t Available Asprin Ec Low Dose 81 mg tablet,ashleigh yed release Take 1 tablet every day by oral route. active Not Available Not Available No t Available olmesartan 20 mg-hydrochl orothiazide 12.5 mg tablet TAKE 1 TABLET BY MOUTH EVERY DAY 2024 active ALY ok to rf Not Available Not Available Not Available nitrofurant oin monohydrate /macrocryst als 100 mg capsule Take 1 capsule twice a day by oral route for 5 days. 08/10 completed Not Available Not Available Not Available Aspir-81 04/04 completed Not Available Not Available Not Available Iron (ferrous sulfate) active Not Available Not Available Not Available lidocaine (PF) 10 mg/mL (1 %) injection solution In office injection administe red by the provider 10/18 completed [facility]: 0409- [phone]- [phone] Not Available Not Available Not Available lidocaine (PF) 5 mg/mL (0.5 %) injection solution In office injection administe red by the provider 10/27 completed Not Available Not Available Not Available Xyzal 5 mg tablet Take 1 tablet every day by oral route. 10/17 completed Not Available Not Available Not Available diclofenac 1 % topical gel APPLY 2 GRAMS TO THE AFFECTED AREA(S) BY TOPICAL ROUTE 4 TIMES PER DAY active Not Available Not Available No t Available Synvisc-One 48 mg/6 mL intra-artic ular syringe Take 6 mL by intraarti cular route, for left knee osteoarth ritis. 2024 active Not Available Not Available Not Avai lable ropivacaine (PF) 5 mg/mL (0.5 %) injection solution Take 20 mg by injection route. 02/04 completed [facility] [id number] [phone] Not Available Not Available Not Available Vitamin D2 2018 active Not Available Not Available Not Avai lable Farxiga 10 mg tablet TAKE 1 TABLET BY MOUTH EVERY DAY active Not Available Not Available No t Available Fluzone High-Dose Quad 2020-21 (PF) 240 mcg/0.7 mL IM syringe active Not Available Not Available N ot Available Vitals Date Recorded Body height Body mass index (BMI) Body weight Provider Name and Address Organization Details Last Updated DateTime 04/14/2024 157.48 cm 32.9 kg/m2 55820.63 g Iona Arroyo [facility] 04/14/2024 09:57:59 Date Recorded Body height Body mass index (BMI) Body weight Provider Name and Address Organization Details Last Updated DateTime 06/18/2024 157.48 cm 34.6 kg/m2 19000.96 g [employer] [facility] 06/18/2024 10:39:02 Date Recorded Systolic And Diastolic Provider Name and Address Organization Details Last Updated DateTime 08/05/2024 125/60 mm[Hg] Katharine Schulte, ALAN-Anh [address] [facility], [address], [place], [address], [facility] 08/05/2024 17:00:38 Date Recorded Body height Body mass index (BMI) Body weight Body temperature Heart rate Oxygen saturation Oxygen saturation in Arterial blood by Pulse oximetry Provider Name and Address Organization Details Last Updated DateTime 157.48 cm 32.6 kg/m2 27375.4 4 g 97.8 [degF] 89 /min 98 % 98 % Serena mandel [facility] 16:16:29 Date Recorded Body height Body mass index (BMI) Body weight Provider Name and Address Organization Details Last Updated DateTime 09/03/2024 160.02 cm 31.9 kg/m2 62746.63 g Iona Arroyo CNA [place] [facility] 09/03/2024 11:17:26 Date Recorded Body height Body mass index (BMI) Body weight Body temperature Heart rate Oxygen saturation Oxygen saturation in Arterial blood by Pulse oximetry Systolic And Diastolic Provider Name and Address Organization Details Last Updated DateTime 5 160.02 cm 28.5 kg/m2 38895.3 7 g 97.2 [degF] 71 /min 92 % 92 % 122/70 mm[Hg] Renu Hua radha JOSEPH [place] [facility] 5 14:54:15 Social History Question Answer Notes LastModified by Organizat ion Details LastModified Time Tobacco Smoking Status Never Smoker Not Available [facility] 06/06/2022 01:22:31 Do You Have An Advance Directive? No MIGRATION.59524 [id number] Information not available 06/06/2022 Are You Blind Or Do You Have Difficulty Seeing? No MIGRATION.60618 34821 Information not available 06/06/2022 What Is Your Level Of Caffeine Consumption? Occasional MIGRATION.90843 54270 Information not available 06/06/2022 How Much Tobacco Do You Chew? None MIGRATION.19575 20900 Information not available 06/06/2022 Are You Deaf Or Do You Have Serious Difficulty Hearing? No MIGRATION.91937 05953 Information not available 06/06/2022 What Type Of Diet Are You Following? REGULAR MIGRATION.81259 73801 Information not available 06/06/2022 Which Illicit Or Recreational Drugs Have You Used? None MIGRATION.30346 78672 Information not available 06/06/2022 What Is The Highest Grade Or Level Of School You Have Completed Or The Highest Degree You Have Received? [id number] MIGRATION.68261 13214 Information not available 06/06/2022 Have There Been Any Changes To Your Family Or Social Situation? No MIGRATION.15389 68695 Information not available 06/06/2022 What Is The Fluoride Status Of Your Home? Fluoridated [email or web address] Information not available 06/20/2022 Are There Any Guns Present In Your Home? No MIGRATION.12403 66618 Information not available 06/06/2022 Where Do You Live? Single[place]House MIGRATION.83442 82372 Information not available 06/06/2022 Are You Able To Care For Yourself? Yes [email or web address] Information not available 06/20/2022 Are You Blind Or Do Yo Have Difficulty Seeing? No Information not available 06/20/2022 Are You Deaf Or Do You Have Serious Difficulty Hearing? No [email or web address] Information not available 06/20/2022 General Stress Level? Low [email or web address] Information not available 06/20/2022 Live Alone Of With Others? Alone [email or web address] Information not available 09/18/2023 What Was The Date Of Your Most Recent Tobacco Screening? 09/18/2023 [email or web address] Information not available 09/18/2023 Do You Have Any Pets? No MIGRATION.42294 65981 Information not available 06/06/2022 What Is Your Relationship Status? MIGRATION.25715 94493 Information not available 06/06/2022 Do You Use Your Seat Belt Or Car Seat Routinely? Yes MIGRATION.48122 70031 Information not available 06/06/2022 Do You Have Smoke And Carbon Monoxide Detectors In Your Home? Yes MIGRATION.95978 82508 Information not available 06/06/2022 Are You Passively Exposed To Smoke? No MIGRATION.28312 23196 Information not available 06/06/2022 Are There Any Smokers In Your House? No MIGRATION.36261 57486 Information not available 06/06/2022 Do You Use Sunscreen Routinely? No MIGRATION.22943 04165 Information not available 06/06/2022 Have You Recently Traveled Abroad? No MIGRATION.38981 06573 Information not available 06/06/2022 Do You Have Difficulty Walking Or Climbing Stairs? Yes Uses A Walker MIGRATION.81333 90168 Information not available 06/06/2022 Do You Have Any Dietary Restrictions? No MIGRATION.85305 04762 Information not available 06/06/2022 Sex: Female Functional Status Question Answer Note LastModified by Organizat ion Details LastModified Time Do you use any illicit or recreational drugs? No MIGRATION.724733 1197 Information not available 06/06/2022 What is your level of alcohol consumption? None MIGRATION.407484 9618 Information not available 06/06/2022 Do you have transportation difficulties? Yes No longer drives MIGRATION.646524 9333 Information not available 06/06/2022 Are you able to walk? YESASSIST MIGRATION.200905 2677 Information not available 06/06/2022 Do you have difficulty doing errands alone? Yes MIGRATION.632458 5888 Information not available 06/06/2022 Are you able to care for yourself? Yes MIGRATION.272655 3894 Information not available 06/06/2022 What is your occupation? RETIRED MIGRATION.793552 8574 Information not available 06/06/2022 Do you have difficulty dressing or bathing? Yes [email or web address] Information not available 09/18/2023 What is your exercise level? None MIGRATION.590244 4268 Information not available 06/06/2022 Mental Status Question Answer Note LastModified by Organizat ion Details LastModified Time Do you feel stressed (tense, restless, nervous, or anxious, or unable to sleep at night)? [id number] MIGRATION.79498036 26 Information not available 06/06/2022 Do you have difficulty concentrating, remembering or making decisions? No MIGRATION.92485786 26 Information not available 06/06/2022 Family History Relationship Description Onset Age of this Age Resolved Age Notes LastModified by Organization Details LastModified Time Mother Malignant neoplasm of lung MIGRATION.198 [id number] Not available 06/06/2022 01:23:07 Sister Diabetes mellitus MIGRATION.897 [id number] Not available 06/06/2022 01:23:07 Sister Malignant tumor of breast MIGRATION.422 [id number] Not available 06/06/2022 01:23:07 Medical History Condition Response ARTHRITIS Y URINARY/BLADDER/KIDNEY PROBLEMS Y OBESITY Y HYPERTENSION Y HIGH CHOLESTEROL / HYPERLIPIDEMIA Y Gynecological History Statement/Question Response Date of Last Colonoscopy 12/01/2013 Date of Last Mammogram Most Recent Bone Density 10/21/2020 Obstetrics History GPAL:G 0 P 0 0 0 0 Immunizations Vaccine Type Date Status Note Provider Nam e and Address Organization Details Recorded Time Influenza, high-dose, trivalent, PF 4 completed Maximo Pruett MD [address] [place] [address], [id number], [facility] [employer] [facility] [place] 02/05/2024 13:23:33 Influenza, split virus, trivalent, preservative 3 completed Nanette Baker CMA [facility] [place] [employer] [facility] [place] 06/19/2023 11:22:30 SARS-COV-2 (COVID-19) vaccine, UNSPECIFIED 1 completed Nanette Baker CMA null, [facility] 06/19/2023 11:22:30 SARS-COV-2 (COVID-19) vaccine, UNSPECIFIED 1 completed Nanette Baker CMA null, [facility] 06/19/2023 11:22:30 Influenza, high-dose, trivalent, PF 0 completed Nanette Baker CMA null, [facility] 06/19/2023 11:22:30 Influenza, high-dose, quadrivalent, PF 2 completed Not Available [facility] 02/04/2023 15:38:05 Influenza, high-dose, quadrivalent, PF 1 completed Not Available [facility] 02/04/2023 15:38:05 Influenza, high-dose, trivalent, PF 9 completed Not Available [facility] 02/04/2023 15:38:05 Influenza, high-dose, trivalent, PF 8 completed Not Available [facility] 02/04/2023 15:38:05 Influenza, high-dose, trivalent, PF 7 completed Not Available [facility] 02/04/2023 15:38:05 Pneumococcal conjugate PCV 13 7 completed JULISSA Abdalla, [facility] 06/19/2023 11:22:30 Influenza, high-dose, trivalent, PF 5 completed Not Available [facility] hospital 02/04/2023 15:38:05 Influenza, split virus, trivalent, PF 4 completed Nanette Baker CMA null, [facility] 06/19/2023 11:22:30 Past Encounters Encounter ID Performer Location Encounter Start Date Encounter Closed Date Diagnosis/Indication Diagnosis SNOMED-CT Code Diagnosis ICD10 Code Diagnosis Note [id number] Maximo Pruett MD [facility] Internal Med [facility] [address] [place] [address] 06/14/2020 00:00:00 06/14/2020 14:38:30 [id number] MD SHAYNE Pringle_[facility] Internal Med [place] [address] [facility] [place] [address] 08/10/2020 00:00:00 08/10/2020 15:42:35 [id number] MD SHAYNE Pringle[facility] Internal Med [place] [address] [facility] [place] [address] 08/24/2020 00:00:00 08/24/2020 10:53:11 [id number] MD SHAYNE Juan_OVIDIO [address] [address] 09/29/2020 00:00:00 09/29/2020 12:43:40 [id number] MD SHAYNE Pringle[facility] Internal Med [address] [place] [address] 10/18/2020 00:00:00 10/18/2020 14:31:59 [id number] MD SHAYNE Pringle[facility] Internal Med [address] [address] 12/16/2020 00:00:00 12/16/2020 12:56:06 [id number] MD SHAYNE Pringle[facility] Internal [facility] [address] [place] [address] 01/24/2021 00:00:00 01/24/2021 17:05:49 [id number] MD SHAYNE Pringle[facility] Internal Med [address] [address] 02/24/2021 00:00:00 02/24/2021 14:53:14 [id number] MD SHAYNE Pringle[facility] Internal [facility] [address] [place] [address] 06/27/2021 00:00:00 06/27/2021 11:48:34 [id number] MD SHAYNE Juan[facility] [place] [address] [facility] [address] [place] [address] 09/15/2021 00:00:00 09/15/2021 12:44:15 [id number] Maximo Pruett MD [facility] Internal Med [address] [place] [address] 10/27/2021 00:00:00 10/27/2021 10:55:02 [id number] Michele Patel MD [facility]_[address] [address] 01/18/2022 00:00:00 01/18/2022 11:48:15 [id number] Maximo Pruett MD [facility] Internal Med [address] [address] 02/20/2022 00:00:00 02/20/2022 10:33:57 [id number] Maximo Pruett MD [facility] Internal Med [address] [address] 06/20/2022 10:02:19 06/20/2022 10:44:27 Essential hypertension 77594122 I10 under control Hyperlipidemia 32306897 E78.5 labs discussed Hyperparathyroidism 6699 9008 E21.3 Osteoarthritis 896639426 M17.12 otc tylenol arthritis Anemia 510137233 D64.9 mild Edema 380990073 R60.9 improved Hypercalcemia 23927864 E 83.52 better Obesity 878065142 E66.9 advise dto watch diet Adult [facility] th examination 049599332 Z00.00 Colonoscop y 2013, no moreMammog kaycee 05/27- no moreDexa- 1Pne umovax,Pre vnar- 10/2016FLU - 2COV ID- 05/13/20, 06/10/20 Pain of le ft shoulder joint 0793381668 4003433 M25.512 to see ortho Kidney disease 46567952 N08 avoid NSAIDS, LABS in 3 months Screening for disorder 056915814 Z13.9 [id number] Michele Patel MD [facility]_[address] [address] 06/28/2022 11:38:43 06/28/2022 13:18:50 Osteoarthritis of left knee joint 8034766114 66090 M17.12 Pain of ri ght shoulder joint 0073409759 1575800 M25.511 [id number] Michele Patel MD [facility]_[address] [address] 08/16/2022 13:37:35 08/16/2022 14:06:01 Osteoarthritis of left knee joint 4036604078 34937 M17.12 Pain of ri ght shoulder joint 7476461228 0709546 M25.511 [id number] Maximo Pruett MD S_[facility] Internal Med [address] [address] 09/17/2022 11:04:29 09/17/2022 12:11:02 Essential hypertension 72039110 I10 under control Hyperlipidemia 70297456 E78.5 on meds Hyperparathyroidism 6699 9008 E21.3 Osteoarthritis 423714645 M17.12 otc tylenol arthritis Anemia 546226606 D64.9 mild Edema 659433331 R60.9 improved Hypercalcemia 05339712 E 83.52 better Obesity 397907973 E66.9 advised to watch diet Pain of le ft shoulder joint 4050511038 2018720 M25.512 seeing ortho Kidney disease 47541387 N08 avoid NSAIDS, LABS Adult heal th examination 285128754 Z00.00 Colonoscop y 2013, no moreMammog kaycee 05/27- no moreDexa- 1Pne umovax,Pre vnar- 10/2016FLU - 2COV ID- 05/13/20, 06/10/20 Thyroid nodule 756299207 E04.1 [id number] Michele Patel MD [facility]_[address] [address] 09/27/2022 10:41:57 10/08/2022 09:18:12 Osteoarthritis of left knee joint 0935929743 89136 M17.12 [id number] Maximo Pruett MD S_[facility] Internal Med [address] [address] 12/19/2022 10:35:03 12/19/2022 11:33:14 Essential hypertension 59236354 I10 under control Hyperlipidemia 60989974 E78.5 restart meds Hyperparathyroidism 6699 9008 E21.3 Osteoarthritis 980803645 M17.12 otc tylenol arthritis Anemia 739263358 D64.9 mild Edema 258494421 R60.9 better Hypercalcemia 82828550 E 83.52 better Obesity 147400400 E66.9 advised to watch diet Pain of le ft shoulder joint 8825613437 3731082 M25.512 seen orthorefil l tramadol, will use it prn Kidney disease 35747643 N08 avoid NSAIDS Adult heal th examination 776874802 Z00.00 Colonoscop y 2013, no moreMammog kaycee 05/27- no moreDexa- 1Pne umovax,Pre vnar- 10/2016FLU - 2COV ID- 05/13/20, 06/10/20 Overactive urinary bladder 510079032 N32.81 mild Prediabetes 847969088 R7 3.03 watching diet [id number] [place] [facility] [address] [address] 12/27/2022 09:33:09 12/27/2022 10:41:43 Osteoarthritis of left knee joint 5465468066 34496 M17.12 Pain of le ft shoulder joint 8637573602 4826912 M25.199 [id number] Maximo Pruett MD S_[facility] [address] [place] [address] 03/18/2023 10:52:26 03/18/2023 11:42:43 Essential hypertension 78662784 I10 under control Hyperlipidemia 52153405 E78.5 on meds Hyperparathyroidism 6699 9008 E21.3 labs Osteoarthritis 843855264 M17.12 otc tylenol arthritis Anemia 390452882 D64.9 mild Edema 812471090 R60.9 better Hypercalcemia 05321247 E 83.52 better, avoid taking calcium Obesity 185693987 E66.9 advised to watch diet Pain of le ft shoulder joint 2590403863 1284044 M25.512 seeing ortho, not better, wants to get second opinion and she will discuss with ortho Kidney disease 20911063 N08 avoid NSAIDS, check labs, start [facility] examination 330899434 Z00.00 Colonoscop y 2013, no moreMammog kaycee 05/27- no moreDexa- 1Pne umovax,Pre vnar- 10/2016FLU - 02/2022, 3COVID- 05/13/20, 06/10/20 Overactive urinary bladder 588253865 N32.81 mild Prediabetes 024174951 R7 3.03 watching diet [id number] Michele Patel MD S_[address] [address] 04/04/2023 08:51:58 04/04/2023 09:29:01 Osteoarthritis of left knee joint 9319677085 33067 M17.12 Osteoarthritis 942138967 M19.691 [id number] Michele Patel MD S_[address] [address] 06/13/2023 10:17:26 06/13/2023 12:31:47 Osteoarthritis of left knee joint 7653960246 54457 M17.12 Osteoarthr itis of joint of left shoulder region 8460121010 00020 M19.311 [id number] Maximo Pruett MD S_[facility] [address] [place] [address] 06/19/2023 11:06:49 06/19/2023 11:59:32 Essential hypertension 09985345 I10 watch, Hyperlipidemia 07020293 E78.5 on meds Hyperparathyroidism 6699 9008 E21.3 labs Osteoarthritis 246220910 M17.12 otc tylenol arthritis Anemia 238702452 D64.9 mild Edema 569896170 R60.9 better Hypercalcemia 11292850 E 83.52 better, avoid taking calcium Obesity 847184066 E66.9 advised to watch diet Pain of le ft shoulder joint 5661369384 3502367 M25.512 seeing ortho, Kidney disease 14000213 N08 avoid NSAIDS, on [facility] examination 643860458 Z00.00 Colonoscop y 2013, no moreMammog kaycee 05/27- no moreDexa- 1Pne umovax,Pre vnar- 10/2016FLU - 02/2022, 2023COVID- 05/13/20, 06/10/20 Overactive urinary bladder 610561683 N32.81 mild Prediabetes 179829204 R7 3.03 watching diet Heart murmur 70376588 R0 1.1 [id number] Maximo Pruett MD [facility] Internal Med [facility] [address] [facility] [place] [address] 07/26/2023 11:48:32 07/26/2023 14:01:09 Edema 804643710 R60.9 she has lower leg edema that inhibits her ability to ambulate very far Obesity 808825090 E66.9 Osteoarthritis 161369984 M17.12 she has arthritis in multiple joints, both shoulders, both knees and hips and low back Rhinitis 89613621 J00 she has chronic allergies and is here today with post nasal drip and wheezing [id number] Maximo Pruett MD [facility] Internal Med [facility] [address] [facility] [place] [address] 07/31/2023 12:00:01 07/31/2023 12:41:36 Inguinal pain 368837333 R10.2 getting better, to take Tramadol prn [id number] Maximo Pruett MD [facility] Internal Med [facility] [address] [facility] [place] [address] 09/18/2023 11:20:53 09/18/2023 12:00:09 Essential hypertension 78568704 I10 better Hyperlipidemia 72301567 E78.5 on meds Hyperparathyroidism 6699 9008 E21.3 Osteoarthritis 458797561 M17.12 otc tylenol arthritis Anemia 758434273 D64.9 on iron Edema 829399503 R60.9 better Hypercalcemia 05780596 E 83.52 better, avoid taking calcium Obesity 441117197 E66.9 advised to watch diet Pain of le ft shoulder joint 9350636084 1806316 M25.512 seen ortho, tylenol Kidney disease 45287210 N08 avoid NSAIDS, on [facility] examination 803236871 Z00.00 Colonoscop y 2013, no moreMammog kaycee 05/27- no moreDexa- 1Pne umovax,Pre vnar- 10/2016FLU - 02/2022, 2023COVID- 05/13/20, 06/10/20 Overactive urinary bladder 468291412 N32.81 mild Prediabetes 503960307 R7 3.03 advised to watch diet Aortic valve stenosis 60 712871 I35.0 moderate, sees cardiology Screening for disorder 420434468 Z13.9 [id number] Epi Osuna MD S_[address] [address] 10/29/2023 09:23:05 10/29/2023 10:43:36 Pain of left shoulder joint 3473207298 2528328 M25.512 Osteoarthr itis of left knee joint 5637116052 10142 M17.12 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 Internal Med [facility] [address] [facility] [place] [address] 11/20/2023 12:08:44 11/20/2023 12:34:19 Numbness of finger 951802728 R20.0 watch,do some hand exercises and take vitamins [id number] Epi Osuna MD [facility] [address] [place] [address] 01/21/2024 15:56:23 01/22/2024 13:10:15 Osteoarthritis of joint of left shoulder region 9381657801 03702 M19.012 Osteoarthr itis of joint of right shoulder region 6896013850 75716 M19.011 Osteoarthr itis of left knee joint 3370867003 83020 M17.12 Pain of le ft knee joint 3229843375 37086 M25.562 Bilateral shoulder joint pain 0849305771 4012131 M25.511 M25.137 [id number] Maximo Pruett MD [facility] Internal Med [facility] [address] [facility] [place] [address] 02/05/2024 11:21:26 02/05/2024 12:29:40 Essential hypertension 66155781 I10 under control Hyperlipidemia 55206182 E78.5 on meds Hyperparathyroidism 6699 9008 E21.3 Osteoarthritis 525070408 M17.12 otc tylenol arthritis Anemia 023490053 D64.9 on iron Edema 548069806 R60.9 better Hypercalcemia 94400109 E 83.52 better, Obesity 566638993 E66.9 advised to watch diet Pain of le ft shoulder joint 8144137711 4202035 M25.512 seen ortho, tylenol Kidney disease 25272731 N08 avoid NSAIDS, discussed Adult heal th examination 939222456 Z00.00 Colonoscop y 2013, no moreMammog kaycee 05/27- no moreDexa- 1Pne umovax,Pre vnar- 10/2016FLU - 02/2022, 2023COVID- 05/13/20, 06/10/20 Overactive urinary bladder 793206009 N32.81 mild Prediabetes 838346833 R7 3.03 advised to watch diet Aortic valve stenosis 60 501711 I35.0 moderate, sees cardiology Administra tion of influenza vaccine 20237884 Z23 [id number] Maximo Pruett MD [facility] Internal Med [facility] [address] [facility] [place] [address] 03/26/2024 15:03:46 03/26/2024 16:02:02 Constipation 57784566 K59.00 discussed to use miralax and drink water [id number] Epi Osuna MD 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 8092933675 17469 M19.012 Osteoarthr itis of joint of right shoulder region 2793950063 95423 M19.011 Osteoarthr itis of left knee joint 6022836929 58620 M17.12 Pain of le ft knee joint 3283527018 04579 M25.887 [id number] Epi Osuna MD [facility] Orth[facility] [address] [address] 06/18/2024 10:30:16 06/18/2024 11:10:10 Bilateral shoulder joint pain 9489349532 0234481 M25.511 M25.512 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 Internal Med [address] [place] [address] 08/05/2024 15:54:05 08/27/2024 12:12:31 Constipation 15490252 K59.00 discussed to use miralax and increase water intake Essential hypertension 39105150 I10 under controlAvo id salty foods and frozen packaged foods. Hyperlipidemia 76629150 E78.5 on medication s Hyperparathyroidism 6699 9008 E21.3 Osteoarthritis 822645768 M17.12 otc tylenol arthritis Anemia 865177087 D64.9 on iron. continue to take Edema 649243271 R60.9 has improved Hypercalcemia 74389351 E 83.52 better Obesity 063792466 E66.9 advised to watch diet Pain of le ft shoulder joint 6712060395 5279698 M25.512 seeing ortho and pain management . Has not improved. Next appointmen t is September 03. Kidney disease 01593942 N08 avoid NSAIDS as discussed Adult heal th examination 039525790 Z00.00 Colonoscop y 2013, no moreMammog kaycee 05/27- no moreDexa- 1Pne umovax,Pre vnar- 10/2016FLU - 02/2022, 3COVID- 05/13/20, 06/10/20\ 03 September- Pain management . Overactive urinary bladder 964780656 N32.81 mild Prediabetes 267347372 R7 3.03 advised to watch diet Aortic valve stenosis 60 706949 I35.0 moderate, sees cardiology Arthritis 0676043 M19.90 otc tylenol arthritis Injury of finger of right hand 7558944644 2901870 S69.91XA Was seen in urgent care and given antibitoic PO/ointmen t [id number] Epi Osuna MD [facility] [place] 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 [address] [place] [address] 09/16/2024 14:48:58 09/16/2024 16:13:37 Upper respiratory tract finding [id number] R09.89 Patient to use albuterol inhaler at home as needed. Health Concerns Section Related Observation LastModified by Organization Detai ls LastModified Time None Recorded Concern Status LastModified by Organization Details LastModified Time None Recorded Advance Directives Directive N: Payers Insurance Date Sequence Insurance Name Policy Number Policy Vera Covered Member ID Vera Member ID Guarantor Name 09/15/2024 1 [facility] (MEDICARE REPLACEMENT/A DVANTAGE - HMO) [id number] Tosin Lundy [id number] Tosin Lundy 08/27/2024 1 [employer] - MEDICARE COMPLETE (MEDICARE REPLACEMENT HMO) [id number] Tosin Lundy [id number] Tosin Lundy Notes Date Note Type Note Provider Name and Address Organization Details Recorded Time 04/14/2024 text/html Patient returns she is complaining of bilateral shoulder pain and left knee pain she has severe naha-yg-xthd osteoarthritis in the medial compartment of left knee and uzgc-oz-khfr glenohumeral osteoarthritis both shoulders. She reports grinding crepitation significant dysfunction in both shoulders right worse than left. She can not do much with either shoulder. Chronically she is taking tramadol unfortunately she can not take nonsteroidal anti-inflammatory medication due to the fact that she has chronic kidney disease she occasionally takes prednisone which also helps quite a bit. She is 89 years of age somewhat debilitated not a candidate for major surgery she comes in today requesting bilateral shoulder injections and left knee injection. WELLINGTON Gonzalez [address], [place], [address], [facility] Geneva Mars 04/14/2024 10:40:02 06/18/2024 text/html the patient retu rns with bilateral shoulder pain and left knee pain. She has known severe lnkj-hb-touw osteoarthritis in the medial compartment of the left knee and cxuu-ep-jxda glenohumeral osteoarthritis in both shoulders. She has grinding crepitation and pain and significant dysfunction in both shoulders really can not do much with either shoulder. She also has significant grinding and crepitation type pain in the left knee. Unfortunately at 89 years of age with significant kidney disease and other medical issues she is not a good candidate for joint arthroplasty. She comes in every now and then for cortisone injections she would like another 1 today in all 3 joints. Denies any new problems no new trauma or injury. WELLINGTON Gonzalez [address], [place], [address], [facility] Geneva Mars 06/18/2024 11:11:15 08/05/2024 text/html Patient is 89y/o female who is here for 4month follow up. Patient also states she fell on 07/21 and went to urgent care for wound on finger. She reports taking amoxicillin and mupirocin ointment. She reports the wound is getting worse. She denies fever, vomiting, or drainage on wound at this time. hypertension: controlled, discussed diet Constipation: alternates between miralax/metamucil Pain Management/ next visit september 03 Patient states she does not need any refills at this time SHAWANDA Villalta [address], [place], [address], [facility] [employer] [facility] [employer] [facility] 08/05/2024 21:33:46 09/03/2024 text/html Patient returns complaining of bilateral shoulder pain and left knee pain. 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 All of them are tflc-fj-obrb the left knee is mfyn-md-xdyf in the medial compartment with significant tricompartmental changes. She has grinding crepitation in both shoulders really can not do much with either shoulder. She is 89 years of age with significant kidney disease not a candidate for joint arthroplasty. She comes in every 3 months for cortisone injections she would like those again today in both shoulders and her left knee. Denies any new trauma or injury no new symptoms or complaints. Cortisone gives her some limited relief but does not totally take the pain away she is aware that this is not going to happen due to the fact that she has such severe osteoarthritis. WELLINGTON Gonzalez [address] [facility], [place] [address], [place], [address], [facility] [employer] [facility] [employer] [facility] 09/03/2024 11:50:06 09/16/2024 text/html Upper Respirator y SymptomsReported bypatient.Location:hea d; chest Quality:hacking cough Severity:no pain Duration:cannot identify Onset/Timing:cannot identify Context:no sick contacts;exposure to passive smoke Modifying Factors:OTC medication; robitussin DM Associated Symptoms:no vomiting; no diarrhea; no rash SHAWANDA Villalta [address] [facility], [facility] [address], [place], [address], [facility] [employer] [facility] 09/16/2024 15:26:42 OBGyn Episode No OBEpisode recorded.
[2024-10-14 11:39] LABS: Hematocrit 40.3 % (37.0-47.0); Hemoglobin 12.2 g/dL (12.0-15.0); Immature Granulocyte Percent A 0.4 % (0-0.5); Lymphocytes Absolute Auto 2.14 K/mm3 (0.9-3.2); Mean Corpuscular HGB Conc 30.3 g/dl (32-36); Mean Corpuscular Hemoglobin 28.1 pg (26-34); Mean Corpuscular Volume 92.9 fl (80-100); Nucleated Red Blood Cells Absolute Auto 0.000 K/mm3 (0.0-0.012); Nucleated Red Blood Cells Perc 0.0 % (0.0-0.2); Platelet Count Result 311 k/mm3 (150-375); Red Blood Count 4.34 M/mm3 (4.2-5.4); White Blood Count 7.8 K/mm3 (4.5-10.0)
[2024-10-14 11:45] LABS: Add Urine Microscopic? YES; Appearance Urine Clear (Clear); Glucose Urine UA 3+ mg/dL (Negative); Leukocyte Esterase Ur Negative LEU/UL (Negative); Nitrate Urine Negative (Negative); Non Pathogenic Casts 0-2; Specific Grav Ur 1.020 (1.001-1.035)
[2024-10-14 12:06] LABS: Alanine Aminotransferase 11 U/L (6-35); Albumin Level 4.1 g/dL (3.5-5.1); Alkaline Phosphatase 68 U/L (38-126); Anion Gap 7 mmol/L (4-12); Aspartate Amino Transferase 28 U/L (14-36); Bilirubin,Total 0.5 mg/dL (0.2-1.3); Blood Urea Nitrogen 19 mg/dL (7-17); Calcium 10.5 mg/dL (8.4-10.2); Carbon Dioxide 30 mmol/L (22-30); Chloride 102 mmol/L (98-107); Cholesterol 167 mg/dL (0-200); Estimated Glomerular Filt Rate 42; Glucose 98 mg/dL (65-110); HDL Direct 37 mg/dL; Potassium 3.8 mmol/L (3.4-5.0); Sodium 139 mmol/L (137-145); Total Protein 7.4 g/dL (6.3-8.2); Triglycerides 227 mg/dL (<150)
[2024-10-14 12:18] LABS: Parathyroid Intact 73.2 pg/mL (14.5-75.2)
[2024-10-14 12:46] LABS: Total Protein Urine Random 6 mg/dL; Ur Ttl Prot Creatinine Ratio 0.06 mg/mg (0-0.20)
[2024-10-14 16:43] LABS: Hemoglobin A1C 5.9 % (<5.7)
== END 2024-10-14 10:36 | disposition home or self-care (01) ==
PROVIDERS: PCP Internal Medicine; Visit Provider Internal Medicine Nephrology
DX: I12.9 Hypertensive chronic kidney disease with stage 1 through stage 4 chronic kidney disease, or unspecified chronic kidney disease (principal); N18.32 Chronic kidney disease, stage 3b; E78.2 Mixed hyperlipidemia; J41.0 Simple chronic bronchitis; M15.0 Primary generalized (osteo)arthritis; I25.110 Atherosclerotic heart disease of native coronary artery with unstable angina pectoris; D63.1 Anemia in chronic kidney disease; E55.9 Vitamin D deficiency, unspecified
CPT/HCPCS: 36415; 80053; 80061; 80069; 81001; 82306; 82570; 83036; 83970; 84156; 85025

== ENCOUNTER 2024-11-20 13:11 | Outpatient (CLI) | payer MEDICARE, MEDICAID, SELFPAY ==
--- NOTE | ~2024-11-20 | US_ITS ---
US renal BI 11/20/2024 14:22 Procedure: Realtime transabdominal ultrasound of the kidneys and bladder. Indication: Stage IIIB chronic kidney disease. Hypertension. Comparison: No prior studies for comparison. 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 There is increased renal cortical echotexture bilaterally, consistent with chronic renal disease. T he right kidney measures 8.2 cm and left kidney measures 8.5 cm. Bladder within normal limits. Impression: 1: Bilateral renal atrophy with increased cortical echotexture, consistent with chronic renal disease . 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 Malignancy is much l ess favored. Consider correlation with CT or MRI abdomen. Reviewed, dictated and finalized at location A. Impression: 1: Bilateral renal atrophy with increased cortical echotexture, consistent with chronic renal disease. 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 Malignancy is much less favored. Consider correlation with CT or MRI abdomen.
--- OUTSIDE RECORDS SUMMARY | 2024-11-20 13:14 | XMS_ITS | Clinical Summary ---
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),Anemia in chronic kidney disease,Vitamin D deficiency, not otherwise specified Inhale 2 puffs if needed for shortness of breath Active traMADol (ULTRAM) 50 MG tabletIndications:C hronic kidney disease stage 3B (HCC),Hypertension, Mixed hyperlipidemia,Prim freddie generalized osteoarthritis,Simp le chronic bronchitis (HCC),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),Anemia in chronic kidney disease,Vitamin D deficiency, not otherwise specified Take 50 mg by mouth every 8 (eight) hours if needed Active Farxiga 10 MG tabletIndications:C hronic kidney disease stage 3B (HCC),Hypertension, Mixed hyperlipidemia,Prim freddie generalized osteoarthritis,Simp le chronic bronchitis (HCC),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),Anemia in chronic kidney disease,Vitamin D deficiency, not otherwise specified Take 10 mg by mouth 1 (one) time each day 5 Active cholecalciferol (VITAMIN D-3 SUPER STRENGTH) 50 MCG (1999) tabletIndications:C hronic kidney disease stage 3B (HCC),Hypertension, Mixed hyperlipidemia,Prim freddie generalized osteoarthritis,Simp le chronic bronchitis (HCC),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),Anemia in chronic kidney disease,Vitamin D deficiency, not otherwise specified Take 2,000 Units by mouth 1 (one) time each day Active acetaminophen (TYLENOL) 650 MG suppositoryIndicati ons:Chronic kidney disease stage 3B (HCC),Hypertension, Mixed hyperlipidemia,Prim freddie generalized osteoarthritis,Simp le chronic bronchitis (HCC),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),Anemia in chronic kidney disease,Vitamin D deficiency, not otherwise specified Insert 650 mg into the rectum every 8 (eight) hours if needed for mild pain Active ferrous sulfate 325 (65 Fe) MG tabletIndications:C hronic kidney disease stage 3B (HCC),Hypertension, Mixed hyperlipidemia,Prim freddie generalized osteoarthritis,Simp le chronic bronchitis (HCC),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, [facility] [address] [facility] [address] [place] [address] Saurabh Bernal MD [address] [facility] [address] [place] [address] Health Maintenance Due Date Last Done Comments Pneumococcal Vaccine: 50+ Years (2 of 2 - PPSV23, PCV20, or PCV21) 12/21/2016 10/26/2016 Influenza Vaccine (#1) 2024 4, 01/19/2020, 02/20/2019, Additional history exists Hepatitis B Vaccine Aged Out No longe r eligible based on patient's age to complete this topic Insurance [facility] Medicare Care Teams Form Maker Relationship Specialty Start Date End Date Katharine Schulte FNP-C [address] [place] [address] PCP - General Internal Medicine 08/12/24
--- OUTSIDE RECORDS SUMMARY | 2024-11-20 13:14 | XMS_ITS | Clinical Summary ---
Author Organization [facility] Address [address] [place] [address] Care Team Providers Care Certified Tumor Registrar Name Role Phone Unavailable Primary Care Provider Unavailabl e Encounters Date Type Department Care Team Description 11/11/2024 External Device Data [facility] ABSTRACTION Provider, Abstract 10/21/2024 External Device Data [facility] Provider, Abstract 10/21/2024 External Device Data [facility]STRACTION Provider, Abstract 10/21/2024 External Device Data [facility]STRA[facility] Provider, Abstract 09/23/2024 External Device Data [facility]STRACTION Provider, [...] on file 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
--- OUTSIDE RECORDS SUMMARY | 2024-11-20 13:14 | XMS_ITS | Clinical Summary ---
Author Organization [facility] Address [address] [place] [address] Care Team Providers Care Cement Sprayer Helper Name Role Phone Unavailable Primary Care Provider [...]
--- OUTSIDE RECORDS SUMMARY | 2024-11-20 13:14 | XMS_ITS | Continuity of Care Document ---
Author Organization [facility] Address [address] [place] [address] [place] [address] Phone Care Team Providers Care Clinical Research Spec Name Role Phone Redd Hawkins Unavailable Unavailable Procedures Procedure Date Office/outpatient Visit, Est Office/outpatient Visit, Est Post-op Follow-up Visit Post-op Follow-up Visit Remove Cataract, Insert Lens Office/outpatient Visit, Est Echo Exam Of Eye-Professional Office/outpatient Visit, Est Post-op Follow-up Visit Post-op Follow-up Visit Remove Cataract, Insert Lens Eye Exam Established Pt Echo Exam Of Eye Eye Exam, New Patient Advance Directives Directive Yes / No Effective Date File Name No Information Encounters Encounter Description Practice Location Reason(s) For Visit Diagnoses Date Provider Providers Copied on Encounter Office/outpat ient Visit, [facility], [address] [place] [address] [address], [place], [place], [id number], [place] tel:[phone] [facility] No Information 7-201 0 Ross Rainey. [address] [facility] [address] , [address], [place], [address], [place]. tel:[phone] Office/outpat ient Visit, [facility], [address] [place] [address] [address], [place], [place], [id number], [place] tel:[phone] [facility] No Information Nov-1 6-200 9 Doisy Edoswaldo. [address] [place], [place] [address]ate Center , [address], [place], [place], [facility], [place]. tel:[phone] [facility], [address] [place] [address] [address], [place], [place], [id number], [place] tel:[phone] [facility] No Information May-2 0-200 9 Doikita Edoswaldo. [address] [place] [address]ate Center , [address], [place], [place], [facility], [place]. tel:[phone] [facility], [address] [place] [address] [address], [place], [place], [id number], [place] tel:[phone] [facility] No Information May-0 6-200 9 Ross Edoswaldo. [address] [place] [address]ate Armani [address], [address], [place], [place], [facility], [place]. tel:[phone] [facility], [address] [place] [address] [address], [place], [place], [id number], [place] tel:[phone] Nov [facility] No Information May-0 5-200 9 Ross Edoswaldo. [facility] , [address], [place], [place], [facility], [place]. tel:[phone] Office/outpat ient Visit, [facility], [address] [place] [address] [address], [place], [place], [address], [place] tel:[phone] [facility] No Information Apr-1 5-200 9 Ross Rainey. [facility] , [address], [place], [facility], [place]. tel:[phone] Referring Provider: Redd Arriaga, [facility] [address], [place], [facility]. tel:[phone] Office/outpat ient Visit, [facility], [address] [place] [address] [address], [place], [place], [address], [place] tel:[phone] [facility] [place] No Information 8 Ross Rainey. [address] [place] [address]ate Center , [address], [place], [facility], [place]. tel:[phone] [facility], [address] [place] [address] [address], [place], [place], [id number], [place] tel:[phone] [facility] No Information 8 Ross Rainey. [address] [place] [address]ate Center , [address], [place], [facility], [place]. tel:[phone] [facility], [address] [place] [address] [address], [place], [place], [address], [place] tel:[phone] [facility] [place] No Information 8 Wood OD Bharat. [address] [place] [place] [address]ate Center , [address], [place], [facility], [place]. tel:[phone] Referring Provider: Redd Arriaga, [address] [place] [address]ate Center [address], [place], [facility]. tel:[phone] [facility], [address] [place] [address] [address], [place], [place], [address], [place] tel:[phone] [facility] No Information 8 Ross Rainey. [facility] , [address], [place], [facility], [place]. tel:[phone] Referring Provider: Bharat Arriaga, [address] [place] [place] [address]ate Center [address], [place], [facility]. tel:[phone] [facility], [address] [place] [address] [address], [place], [place], [id number], [place] tel:[phone] [facility] No Information 8200 7 Ross Rainey. [address] [place] [address] Dr, [address], [place], [address], [place]. tel:[phone] Referring Provider: Bharat Arriaga, [address] [place] [address] [address], [place], [address]. tel:[phone] [facility], [address] [facility] [address], [place], [place], [address], [place] tel:[phone] SEC [facility] No Information 7-200 7 Wood VAL Nicholson. [facility] , [address], [place], [address], [place]. tel:[phone] Family History Family Member Type Diagnosis Age At Onset No Information Payers Payer name Insurance type Covered republican ID Authoriza tion(s) No Information Social History Type Description Quantity Date Captured Comments Sex Female Smoking Status No Information Chief Complaint And Reason For Visit No Information Reason For Referral Reason For Referral No Information History Of Present Illness Encounter Date Complaint History Of Prese nt Illness No Information Functional Status Date Functional Assessmen t No Information Instructions Date Instruction Additional Infor mation No Information Assessments Type Assessment Date No Information Patient Care Teams Name Effective Dates (start - stop) Status Members No Information
--- OUTSIDE RECORDS SUMMARY | 2024-11-20 13:14 | XMS_ITS | Continuity of Care Document ---
Author Organization [employer] Address [address] [place] [address] Phone Care Team Providers Care Director Microbiology Name Role Phone Jayla Duarte MD Unavailable Unavailabl e Allergies, Adverse Reactions, Alerts Substance Reaction Status Criticality No Known Drug Allergies Other Active No I nformation Medications Medication Instructions Dosage Effective Dates (start - stop) Status Comments ATENOLOL 50 MG TABLET 1 DIRECTE - A ctive 1 in am and 1/2 in pm LOVASTATIN 40 MG TABLET 1 QPM - Active LISINOPRIL 30 MG TABLET 1 QAM - Active SALSALATE 750 MG TABLET 1 BID - Active JENN 60MG TABS 1 BID - Active ZYRTEC 10MG TABS 1 QD - Active FLONASE 50MCG APPLICS 2 QD - Acti ve ADULT LOW STRENGTH 81MG TABS 1 QD - Active ATENOLOL 50 MG TABLET 1 DIRECTE - No Longer Active 1 in am and 1/2 in pm LOVASTATIN 40 MG TABLET 1 QPM - No Longer Active HYDROCODONE W/ACETAMINOPHEN 10 1 Q 4-6HR - No Longer Active LISINOPRIL 30 MG TABLET 1 QAM - No Longer Active LISINOPRIL 20 MG TABLET 1 QD - No Longer Active SALSALATE 750 MG TABLET 1 BID - No Longer Active LOVASTATIN 40 MG TABLET 1 QPM - No Longer Active ATENOLOL 50 MG TABLET 1 DIRECTE - No Longer Active 1 in am and 1/2 in pm ATENOLOL 50 MG TABLET 1 DIRECTE - No Longer Active 1 in am and 1/2 in pm BACTRIM DS 800-160MG TABS 1 BID - No Longer Active LOVASTATIN 40 MG TABLET 1 QPM - No Longer Active HYDROCODONE/APAP 5/500 TAB 1 Q 4HR - No Longer Active LOVASTATIN 40 MG TABLET 1 QPM - No Longer Active HYDROCODONE/APAP 5/500 TAB 1 Q 4HR - No Longer Active HYDROCODONE/APAP 5/500 TAB 1 Q 4HR - No Longer Active LISINOPRIL 20 MG TABLET 1 QD - No Longer Active ATENOLOL 50 MG TABLET 1 DIRECTE - No Longer Active 1 in am and 1/2 in pm ATENOLOL 50 MG TABLET 1 DIRECTE - No Longer Active 1 in am and 1/2 in pm LISINOPRIL 10 MG TABLET 1 QD - No Longer Active HYDROCODONE/APAP 5/500 TAB 1 Q 4HR - No Longer Active HYDROCODONE-ACETAMINO PHEN 5-50 1 Q 4HR - No Longer Active SALSALATE 750MG TABS 1 BID 2004 - No Longer Active LOVASTATIN 40 MG TABLET 1 QPM - No Longer Active DOXIDAN 30-100MG CAPS 1 BID - No Longer Active MOBIC 7.5MG TABS 1 QD - No Longer Active ATENOLOL 50 MG TABLET 1 DIRECTE - No Longer Active 1 in am and 1/2 in pm DIPROLENE 0.05% LOTION 1 BID - No Longer Active LOVASTATIN 40MG TABS 1 QPM 2004 - No Longer Active LISINOPRIL 10MG TABS 1 QD 2004 - No Longer Active METHOCARBAMOL 500MG TABS 1 QID - No Longer Active MEDROL 4MG TABS 1 DIRECTE - No Longer Active ATENOLOL 50 MG TABLET 1 DIRECTE - No Longer Active 1 in am and 1/2 in pm ATENOLOL 50MG TABLET 1 QD 2003 - No Longer Active DICLOFENAC SODIUM 100MG TABS 1 QD - No Longer Active DIPROLENE 0.05% LOTION 1 BID - No Longer Active DIPROLENE 0.05% LOTION 1 BID - No Longer Active ATENOLOL 50MG TABLET 1 QD 2003 - No Longer Active DIPROLENE 0.05% LOTION 1 BID - No Longer Active PREMARIN 0.625MG TABLET 1 QD - No Longer Active NAPROXEN 500MG TABLET 1 BID - No Longer Active ATENOLOL 50MG TABS 1 QD No Longer Active ATENOLOL 50MG TABLET 1 QD 2002 - No Longer Active DIPROLENE 0.05% APPLICS 1 BID - No Longer Active NAPROXEN 500MG TABLET 1 BID - No Longer Active ATENOLOL 50MG TABLET 1 QD 2002 - No Longer Active NAPROXEN 500MG TABS 1 BID No Longer Active NAPROXEN 500MG TABS 1 BID No Longer Active NAPROXEN 500MG TABS 1 BID No Longer Active DARVOCET-N 100 100-650MG TABS 1 Q 4HR - No Longer Active ATENOLOL 50MG TABLET 1 QD 2001 - No Longer Active PREDNISONE 10MG TABS 1 DIRECTE 2001 - No Longer Active 4 oills for 3 days3 pills for 3 days2 pills for 3 days1 pill for 3 days then d/c PREMARIN 0.625MG TAB(S) 1 OD - No Longer Active NAPROXEN 500MG TAB(S) 1 BID - No Longer Active ATENOLOL 50MG TAB(S) 1 QD 2000 - No Longer Active Advance Directives Directive Yes / No Effective Date File Name No Information Encounters Encounter Description Practice Location Reason(s) For Visit Diagnoses Date Provider Providers Copied on Encounter [facility], [address], [place], [place], [id number] , tel: [phone] [facility] No Information [address] [facility], [facility] [address] [place] [address], [id number]. tel:[phone] [facility], [address], [place], [place], [address] , tel:[phone] [facility] SAUSAGE WRAPPER KIDNEY DIS STAGE IIALLERGIC RHINITIS NOSBEN HY KID W CR KID I-IV [address] [facility], [facility] [address] [place] [address], [id number]. tel:[phone] [facility], [address], [place], [place], [address] , tel:[phone] [facility] COUGH [address] [facility], [address], [place], [place], [address]. tel:[phone] [facility], [address], [place], [place], [address] , [place] tel: [phone] [facility] BACKACHE NOSBEN HYP KID W CR KID V 8200 6 [facility]. [address] [facility], [address], [place], [place], [address]. tel: [phone] [facility], [address], [place], [place], [address] , [place] tel: [phone] [facility] JOINT PAIN-PELVIS 200 6 [facility]. [address] [facility], [address], [place], [place], [address]. tel:[phone] [facility], [address], [place], [place], [address] , [place] tel: [phone] [facility] ACUTE SINUSITIS NOSLONG-TERM USE MEDS NECHYPERLIPIDEMIA NEC/NOS 4 6 [facility]. [address] [facility], [address], [place], [place], [address]. tel: [phone] [facility], [address], [place], [place], [address] , [place] tel: [phone] [facility] GENERAL OSTEOARTHROSIS 8 5 [facility]. [address] [facility], [address], [place], [place], [address]. tel: [phone] [facility], [address], [place], [place], [address] , [place] tel: [phone] [facility] DISC DIS NEC/NOS-CERV 6200 5 [facility]. [address] [facility], [address], [place], [place], [address]. tel:[phone] [facility], [address], [place], [place], [address] , [place] tel: [phone] [facility] REMOVAL INT FIXATION DEV 5[address]erson[address] [facility], [address], [place], [place], [address]. tel:[phone] [facility], [address], [place], [place], [address] , [place] tel: [phone] [facility] CONSTIPATION NOS 2200 5 [facility]. [address] [facility], [place], [address], [place]. [facility], [address], [place], [address] , [place] tel: [phone] [facility] URIN TRACT INFECTION NOS 0 [address] Dickerson[address] [facility], [address], [place], [place], [address]. tel:[phone] [facility], [address], [place], [place], [address] , [place] tel: [phone] [facility] No Information [address] [facility], [address], [place], [place], [address]. tel:[phone] [facility], [address], [place], [place], [address] , [place] tel: [phone] [facility] DYSURIA [address] [facility], [address], [place], [place], [address]. tel:[phone] [facility], [address], [place], [place], [address] , [place] tel: [phone] [facility] SCREENING-PULMONA RY TB [address] [facility], [address], [place], [place], [address]. tel:[phone] [facility], [address], [place], [place], [address] , [place] tel: [phone] [facility] SEBRRHEIC DERMATITIS NOS Woody-0 8-[address] [facility], [address], [place], [place], [address]. tel:[phone] [facility], [address], [place], [place], [address] , tel: [phone] [facility] PAIN IN LIMB Woody-0 3-[address] [facility], [address], [place], [place], [address]. tel:[phone] [facility], [address], [place], [place], [address] , tel: [phone] [facility] HORMONE REPLACE POSTMENO Feb-0 6-[address] [facility], [address], [place], [place], [address]. tel:[phone] [facility], [address], [place], [place], [address] , tel: [phone] [facility] OBESITY NOS Mar-2 [address] [facility], [address], [place], [place], [address]. tel:[phone] Family History Family Member Type Diagnosis Age At Onset No Information Payers Payer name Insurance type Covered constitution party ID Authoriza tion(s) No Information Social History Type Description Quantity Date Captured Comments Sex Female Smoking Status No Information Chief Complaint And Reason For Visit No Information Reason For Referral Reason For Referral No Information History Of Present Illness Encounter Date Complaint History Of Prese nt Illness No Information Functional Status Date Functional Assessmen t No Information Medications Administered Medication Instructions Dosage Effective Dates (start - stop) Status Comments ATENOLOL 50 MG TABLET 1 DIRECTE - No Longer Active 1 in am and 1/2 in pm LOVASTATIN 40 MG TABLET 1 QPM - No Longer Active HYDROCODONE/APAP 5/500 TAB 1 Q 4HR - No Longer Active ATENOLOL 50 MG TABLET 1 DIRECTE - No Longer Active 1 in am and 1/2 in pm Instructions Date Instruction Additional Infor mation No Information Assessments Type Assessment Date No Information Patient Care Teams Name Effective Dates (start - stop) Status Members No Information
--- OUTSIDE RECORDS SUMMARY | 2024-11-20 13:14 | XMS_ITS | Clinical Summary ---
Author Organization [facility] Address [address] [place] [address] Care Team Providers Care Rn Tele Name Role Phone Ash Pruett MD Primary Care Provider [phone] Source Comments [facility],non-owned Affiliates and Associated Physician Practices is amultiple site organization consisting of ambulatory clinics and hospital sitesin [place], [place], [place] and [place]. This disclosure is being madepursuant to the Care Everywhere program and may not contain all information available regarding this patient. Last updated 17.[facility] Medications * Be aware that medications may not be up to date on this document. Alwaysverify current medications with the patient. clindamycin (Cleocin) 300 MG capsule Take 1 (one) capsule by mouth 3 times daily 15 capsule 08/11/2024 Active Social History Tobacco Use Types Packs/Day Years [...] - 1-dose 75+ series) 2011 COVID-19 VACCINE (1 - 2023- season) 2023 DEPRESSION SCREENING 04/08/2024 MEDICARE AWV [...] patient's age to complete this topic Insurance [facility] MANAGED MEDICARE ADV Care Teams Rn Tele Relationship Specialty Start Date End Date Ash Pruett MD [address] [facility] [address] [place] [address] PCP - General Internal Medicine 08/11/24
[2024-11-20 14:57] LABS: Albumin Level 3.9 g/dL (3.5-5.1); Anion Gap 8 mmol/L (4-12); Blood Urea Nitrogen 19 mg/dL (7-17); Calcium 10.6 mg/dL (8.4-10.2); Carbon Dioxide 28 mmol/L (22-30); Chloride 99 mmol/L (98-107); Estimated Glomerular Filt Rate 45; Glucose 94 mg/dL (65-110); Potassium 4.1 mmol/L (3.4-5.0); Sodium 135 mmol/L (137-145)
[2024-11-20 15:13] LABS: Add Urine Microscopic? YES; Appearance Urine Clear (Clear); Glucose Urine UA 3+ mg/dL (Negative); Leukocyte Esterase Ur Negative LEU/UL (Negative); Nitrate Urine Negative (Negative); Non Pathogenic Casts 0-2; Specific Grav Ur 1.008 (1.001-1.035)
[2024-11-20 15:22] LABS: Total Protein Urine Random 9 mg/dL; Ur Ttl Prot Creatinine Ratio 0.26 mg/mg (0-0.20)
== END 2024-11-20 13:12 | disposition home or self-care (01) ==
PROVIDERS: PCP Internal Medicine; Visit Provider Internal Medicine Nephrology
DX: I12.9 Hypertensive chronic kidney disease with stage 1 through stage 4 chronic kidney disease, or unspecified chronic kidney disease (principal); N18.32 Chronic kidney disease, stage 3b; E78.2 Mixed hyperlipidemia; M15.0 Primary generalized (osteo)arthritis; J41.0 Simple chronic bronchitis; I25.110 Atherosclerotic heart disease of native coronary artery with unstable angina pectoris; D63.1 Anemia in chronic kidney disease; E55.9 Vitamin D deficiency, unspecified
CPT/HCPCS: 36415; 76775; 80069; 81001; 82570; 84156